=== PATIENT | female | born 1950 | race Caucasian/White ===

== ENCOUNTER 2017-10-23 19:14 | Inpatient (IN) | payer MEDICARE, MEDICAID, SELFPAY ==
[2017-10-23 19:28] VITALS: BP 145/68; PULSE 68; RESP 16; TEMP 36.2; O2SAT 95; BMI 25.0
--- NOTE | 2017-10-23 20:12 | NURSING ---
Pt arrive via cot from [facility] @ [phone]
--- NOTE | 2017-10-23 21:12 | PCM.HP.STD ---
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 The patient is a 67 year old Female with below past medical history significant for hypertension, hyperlipidemia, coronary artery disease, stroke, TIA, CADASIL syndrome, GERD, and depression who was transferred to [facility] MICU 10/12/2017 due to septic shock, and concern for ARDS after initially presenting to [facility] after a fall and was found to have right hip intertrochanteric hip fracture and underwent ORIF on 10/11/[address] Walsh with immediate post operative course was complicated by coffee ground emesis and aspiration causing hypoxic respiratory failure with septic versus hypovolemic shock. [] 10/14/2017 Aspiration pneumonia treated with Zosyn, Vancomycin, extubated. Upper GI bleed, EGD showed hiatal hernia, 2 esophageal ulcers, no active bleeding, transfused 2 unis PRBC, PPI BID x 1 month. NSTEMI demand ischemia, LHC not pursued, recommend aspirin 81MG, Atorvastatin 40MG. Plavix for CADASIL. Right hip fracture, needs PT/OT. Oxybutynin, hoang catheter discontinued for urinary retention. Right sided weakness from stroke, CADASIL. Lovenox 40MG SC daily for DVT prophylaxis. 10/23/2017 Admit to TCU for rehabilitaton, strengthening, prior to discharge home alone. 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) Stroke (Chronic) Depression (Chronic) Coronary artery disease (Chronic) GERD (gastroesophageal reflux disease) (Chronic) DVT (deep venous thrombosis) (Chronic) Allergies alteplase Allergy (Verified 10/23/17 20:04) Unknown Home Medications: Ambulatory Orders Medication Instructions Recorded Atenolol [Tenormin (Beta Rupesh)] 50 mg PO DAILY 08/14/15 Clopidogrel Bisulfate [Plavix] 75 mg PO DAILY 08/14/15 Lisinopril [Zestril] 10 mg PO DAILY 08/14/15 Acetaminophen [Tylenol] 325 - 975 mg PO Q8H PRN PRN 10/23/17 Aspirin 81 mg PO DAILY@0800 10/23/17 Atorvastatin Calcium [Lipitor] 40 mg PO QHS 10/23/17 Docusate Sodium [Colace] 100 mg PO BID 10/23/17 Duloxetine HCl 60 mg PO DAILY 10/23/17 Enoxaparin [Lovenox] 40 mg SQ DAILY 10/23/17 Gabapentin [Neurontin] 300 mg PO BIDCM 10/23/17 Melatonin 3 mg PO QHS 10/23/17 Nitroglycerin 0.4 mg SL PRN PRN 10/23/17 Pantoprazole Sodium [Protonix] 40 mg PO BID 10/23/17 Polyethylene Glycol 3350 [Miralax] 17 gm PO BID 10/23/17 Sennosides [Senna] 8.6 mg PO BID PRN 10/23/17 Surgical History: - - ORIF right hip. 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 Lives: Alone Smoking Status: Former smoker Tobacco Use: Non-smoker Alcohol: None Drugs: None - *Family History Maternal History Items: No pertinent history Paternal History Items: No pertinent history Review of Systems Constitutional: Denies: Chills, Fever, Weight Change HEENT: Denies: Head Aches, Sinus Congestion, Sinus Drainage Cardiovascular: Denies: Chest Pain, Palpitations Respiratory: Denies: Cough, Shortness of breath at rest, Sputum production Gastrointestinal: Denies: Abdominal Pain, Nausea, Vomiting Genitourinary: Denies: Dysuria Musculoskeletal: Denies: Joint Pain, Joint Tenderness Skin: Denies: Rash, Wounds Neurological: Denies: Numbness, Tingling, Focal weakness Psychiatric: Denies: Anxiety, Depression, Homicidal Ideations, Suicidal Ideations Hematologic/ Lymphatic: Denies: Easy Bruising, Easy Bleeding VTE Information - Inpt Only VTE Present on Admission: No VTE Mechan Device Prophylaxis: Knee High CHINO Hose VTE Pharm Prophylaxis ordered?: Yes Patient Problems: Active and Suspected Problems Acute respiratory failure with hypoxia (Acute) Aspiration pneumonia (Acute) Upper GI bleed (Acute) Anemia (Acute) Delirium (Acute) NSTEMI (non-ST elevated myocardial infarction) (Acute) Closed right hip fracture (Acute) Urinary retention (Acute) Hyperlipidemia (Acute) - Physical Exam General: Alert, Oriented x3, Cooperative HEENT: Atraumatic, PERRLA, EOMI, Normocephalic Neck: Supple, No JVD, Negative Carotid Bruits Lungs: Clear to auscultation, Normal air movement Cardiovascular: Regular rate, No murmurs Abdomen: Bowel Sounds Present, Soft, Non Tender Extremities: No edema, Capillary Refill Less than 3 Seconds Skin: No rashes, No breakdown Musculoskeletal: No Tenderness to Palpation of Joints or Extremities Neurological: Cranial nerves II-XII grossly intact Psych/Mental Status: Normal Affect, Appropriate Vital Signs Temp Pulse Resp BP Pulse Ox 97.2 F L 68 16 145/68 H 95 10/23/17 19:28 10/23/17 19:28 10/23/17 19:28 10/23/17 19:28 10/23/17 19:28 Oxygen Delivery Method Room Air Weight: 68.124 kg Body Mass Index (BMI) 25.0 Assessment/Plan Active and Suspected Problems Acute respiratory failure with hypoxia (Acute) Aspiration pneumonia (Acute) Upper GI bleed (Acute) Anemia (Acute) Delirium (Acute) NSTEMI (non-ST elevated myocardial infarction) (Acute) Closed right hip fracture (Acute) Urinary retention (Acute) Hyperlipidemia (Acute) 67 year old female with below past medical history hospitalized for right hip fracture, underwent ORIF 10/11/2017, complicated by upper GI bleed, coffee ground emesis, leading to aspiration pneumonia, acute respiratory failure, admitted to TCU for debility, here for rehabilitation, strengthening, prior to discharge home alone. Debility - PT/OT. Pain - Tylenol 1000MG Q8H PRN mild pain. Bowel - Miralax 17GM BID, Senna/colace 2 tablets BID, Dulcolax 10MG CO daily PRN. Pneumonia vaccination - Administer Prevnar 13 and/or Pneumovax 23 as necessary. DVT prophylaxis - Lovenox 40MG sc daily. Coronary Artery Disease - Atenolol 50MG daily, Lisinopril 10MG daily, Aspirin 81MG daily, NTG 0.4MG Q5M PRN chest pain. Hyperlipidemia - Atorvastatin 40MG QHS. Stroke/CADASIL - Plavix 75MG daily, Aspirin 81MG daily. Depression - Duloxetine 60MG daily. Skin irritation - Eucerin BID bilateral feet, legs; Calmoseptine BID coccyx. Neuropathic pain - Gabapentin 300MG BID. Nutrition - Glucerna 120ML TID. Insomnia - Melatonin 3MG QHS. Tinea Corporis - Nystatin powder BID groin, abdominal folds. Esophageal ulcers - Pantoprazole 40MG BID thru 11/14/2017, then 40MG daily.
--- NOTE | 2017-10-23 21:23 | HP.PCM_ITS ---
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 The patient is a 67 year old Female with below past medical history significant for hypertension, hyperlipidemia, coronary artery disease, stroke, TIA, CADASIL syndrome, GERD, and depression who was transferred to [facility] MICU 10/12/2017 due to septic shock, and concern for ARDS after initially presenting to [facility] after a fall and was found to have right hip intertrochanteric hip fracture and underwent ORIF on 10/11/[address] Walsh with immediate post operative course was complicated by coffee ground emesis and aspiration causing hypoxic respiratory failure with septic versus hypovolemic shock. [] 10/14/2017 Aspiration pneumonia treated with Zosyn, Vancomycin, extubated. Upper GI bleed, EGD showed hiatal hernia, 2 esophageal ulcers, no active bleeding, transfused 2 unis PRBC, PPI BID x 1 month. NSTEMI demand ischemia, LHC not pursued, recommend aspirin 81MG, Atorvastatin 40MG. Plavix for CADASIL. Right hip fracture, needs PT/OT. Oxybutynin, hoang catheter discontinued for urinary retention. Right sided weakness from stroke, CADASIL. Lovenox 40MG SC daily for DVT prophylaxis. 10/23/2017 Admit to TCU for rehabilitaton, strengthening, prior to discharge home alone. 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) Stroke (Chronic) Depression (Chronic) Coronary artery disease (Chronic) GERD (gastroesophageal reflux disease) (Chronic) DVT (deep venous thrombosis) (Chronic) Allergies alteplase Allergy (Verified 10/23/17 20:04) Unknown Home Medications: Ambulatory Orders Medication Instructions Recorded Atenolol [Tenormin (Beta Rupesh)] 50 mg PO DAILY 08/14/15 Clopidogrel Bisulfate [Plavix] 75 mg PO DAILY 08/14/15 Lisinopril [Zestril] 10 mg PO DAILY 08/14/15 Acetaminophen [Tylenol] 325 - 975 mg PO Q8H PRN PRN 10/23/17 Aspirin 81 mg PO DAILY@0800 10/23/17 Atorvastatin Calcium [Lipitor] 40 mg PO QHS 10/23/17 Docusate Sodium [Colace] 100 mg PO BID 10/23/17 Duloxetine HCl 60 mg PO DAILY 10/23/17 Enoxaparin [Lovenox] 40 mg SQ DAILY 10/23/17 Gabapentin [Neurontin] 300 mg PO BIDCM 10/23/17 Melatonin 3 mg PO QHS 10/23/17 Nitroglycerin 0.4 mg SL PRN PRN 10/23/17 Pantoprazole Sodium [Protonix] 40 mg PO BID 10/23/17 Polyethylene Glycol 3350 [Miralax] 17 gm PO BID 10/23/17 Sennosides [Senna] 8.6 mg PO BID PRN 10/23/17 Surgical History: - - ORIF right hip. 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 Lives: Alone Smoking Status: Former smoker Tobacco Use: Non-smoker Alcohol: None Drugs: None - *Family History Maternal History Items: No pertinent history Paternal History Items: No pertinent history Review of Systems Constitutional: Denies: Chills, Fever, Weight Change HEENT: Denies: Head Aches, Sinus Congestion, Sinus Drainage Cardiovascular: Denies: Chest Pain, Palpitations Respiratory: Denies: Cough, Shortness of breath at rest, Sputum production Gastrointestinal: Denies: Abdominal Pain, Nausea, Vomiting Genitourinary: Denies: Dysuria Musculoskeletal: Denies: Joint Pain, Joint Tenderness Skin: Denies: Rash, Wounds Neurological: Denies: Numbness, Tingling, Focal weakness Psychiatric: Denies: Anxiety, Depression, Homicidal Ideations, Suicidal Ideations Hematologic/ Lymphatic: Denies: Easy Bruising, Easy Bleeding VTE Information - Inpt Only VTE Present on Admission: No VTE Mechan Device Prophylaxis: Knee High CHINO Hose VTE Pharm Prophylaxis ordered?: Yes Patient Problems: Active and Suspected Problems Acute respiratory failure with hypoxia (Acute) Aspiration pneumonia (Acute) Upper GI bleed (Acute) Anemia (Acute) Delirium (Acute) NSTEMI (non-ST elevated myocardial infarction) (Acute) Closed right hip fracture (Acute) Urinary retention (Acute) Hyperlipidemia (Acute) - Physical Exam General: Alert, Oriented x3, Cooperative HEENT: Atraumatic, PERRLA, EOMI, Normocephalic Neck: Supple, No JVD, Negative Carotid Bruits Lungs: Clear to auscultation, Normal air movement Cardiovascular: Regular rate, No murmurs Abdomen: Bowel Sounds Present, Soft, Non Tender Extremities: No edema, Capillary Refill Less than 3 Seconds Skin: No rashes, No breakdown Musculoskeletal: No Tenderness to Palpation of Joints or Extremities Neurological: Cranial nerves II-XII grossly intact Psych/Mental Status: Normal Affect, Appropriate Vital Signs Temp Pulse Resp BP Pulse Ox 97.2 F L 68 16 145/68 H 95 10/23/17 19:28 10/23/17 19:28 10/23/17 19:28 10/23/17 19:28 10/23/17 19:28 Oxygen Delivery Method Room Air Weight: 68.124 kg Body Mass Index (BMI) 25.0 Assessment/Plan Active and Suspected Problems Acute respiratory failure with hypoxia (Acute) Aspiration pneumonia (Acute) Upper GI bleed (Acute) Anemia (Acute) Delirium (Acute) NSTEMI (non-ST elevated myocardial infarction) (Acute) Closed right hip fracture (Acute) Urinary retention (Acute) Hyperlipidemia (Acute) 67 year old female with below past medical history hospitalized for right hip fracture, underwent ORIF 10/11/2017, complicated by upper GI bleed, coffee ground emesis, leading to aspiration pneumonia, acute respiratory failure, admitted to TCU for debility, here for rehabilitation, strengthening, prior to discharge home alone. * Debility - PT/OT. * Pain - Tylenol 1000MG Q8H PRN mild pain. * Bowel - Miralax 17GM BID, Senna/colace 2 tablets BID, Dulcolax 10MG SD daily PRN. * Pneumonia vaccination - Administer Prevnar 13 and/or Pneumovax 23 as necessary. * DVT prophylaxis - Lovenox 40MG sc daily. * Coronary Artery Disease - Atenolol 50MG daily, Lisinopril 10MG daily, Aspirin 81MG daily, NTG 0.4MG Q5M PRN chest pain. * Hyperlipidemia - Atorvastatin 40MG QHS. * Stroke/CADASIL - Plavix 75MG daily, Aspirin 81MG daily. * Depression - Duloxetine 60MG daily. * Skin irritation - Eucerin BID bilateral feet, legs; Calmoseptine BID coccyx. * Neuropathic pain - Gabapentin 300MG BID. * Nutrition - Glucerna 120ML TID. * Insomnia - Melatonin 3MG QHS. * Tinea Corporis - Nystatin powder BID groin, abdominal folds. * Esophageal ulcers - Pantoprazole 40MG BID thru 11/14/2017, then 40MG daily.
[2017-10-23] MEDS: Atorvastatin Calcium 40 MG Tablet PO (21:32)
[2017-10-23] MEDS: MELATONIN 3 MG TABLET PO (21:32)
[2017-10-23] MEDS: Menthol/Lanolin/Calamine/Znox 113 GM Tube 1 APPLIC TOPICAL (23:16)
[2017-10-23] MEDS: Nystatin Powder 15gm Bottle 1 APPLIC TOPICAL (23:16)
[2017-10-24] MEDS: Senna/Docusate Sodium 1 Tablet 2 TABLET PO (04:15)
[2017-10-24] MEDS: Atenolol 50 MG Tablet PO (04:15)
[2017-10-24] MEDS: Lisinopril 10 MG Tablet PO (04:15)
[2017-10-24] MEDS: Pantoprazole Sodium 40 MG Tablet PO (04:15)
[2017-10-24] MEDS: DULoxetine Hcl 60 MG Capsule PO (04:15)
[2017-10-24] MEDS: Clopidogrel Bisulfate 75 MG Tablet PO (04:15)
[2017-10-24] MEDS: Menthol/Lanolin/Calamine/Znox 113 GM Tube 1 APPLIC TOPICAL (04:16)
[2017-10-24] MEDS: Nystatin Powder 15gm Bottle 1 APPLIC TOPICAL (04:16)
[2017-10-24] MEDS: Enoxaparin 40 MG/0.4 ML Syringe SC (04:17)
[2017-10-24] MEDS: Acetaminophen 500 MG Tablet 1000 MG PO ×2 (04:17→15:07)
[2017-10-24 05:58] LABS: Absolute Neutrophil Count 6.2 X10^3/uL (2.0-7.7); Basophil# 0.05 X10^3/uL; Basophil% 0.5 % (0-1); Eosinophil# 0.33 X10^3/uL; Eosinophils% 3.4 % (0-5); Hematocrit 32.8 % (37-47); Hemoglobin 10.4 g/dl (12.0-15.0); Lymphocyte % 21.6 % (19-41); Mean Corp Hgb Conc 31.7 g/gl (32-36); Mean Corpuscular Hgb 29.4 pg (27.0-32.0); Mean Corpuscular Volume 92.7 fL (81-99); Mean Platelet Vol. 9.8 fl (6.2-12.0); Monocyte# 0.99 X10^3/uL; Monocyte% 10.2 % (0-10); Neutrophil # 6.21 X10^3/uL (2.7-7.7); Platelet Count 680 K/mm3 (150-450); RBC Distribution Width CV 15.2 % (11.6-14.6); RBC Distribution Width SD 49.4 fl (35.1-43.9); Red Blood Count 3.54 M/mm3 (4.2-5.4); White Blood Count 9.7 K/mm3 (4.4-11.0)
[2017-10-24 06:04] LABS: POSITIVE COUNT NO; POSITIVE DIFFERENTIAL NO; POSITIVE MORPHOLOGY NO
[2017-10-24 06:06] LABS: Bedside Glucose 112 mg/dL (70-110)
[2017-10-24 06:25] LABS: Anion Gap 9 (5-15); BUN 10 mg/dL (7-18); BUN/Creat Ratio 18.5 RATIO (10-20); Calcium,Total 8.4 mg/dL (8.5-10.1); Chloride 106 mmol/L (98-107); Creatinine, Serum 0.54 mg/dL (0.55-1.02); EST Glomerular Filtration Rate 119 mL/min (>60); Est Glom Filt Rate - Afr Amer 145 mL/min (>60); Estimated Creatinine Clearance 49.12 ml/min; Glucose 98 mg/dL (74-106); Potassium 3.5 mmol/L (3.5-5.1); Sodium Level 141 mmol/L (136-145)
[2017-10-24] MEDS: Aspirin 81 MG TAB.CHEW PO (07:20)
[2017-10-24] MEDS: Gabapentin 300 MG Capsule PO (07:20)
[2017-10-24 10:45] LABS: Hemoglobin A1c 5.8 % (4.2-6.3)
--- NOTE | 2017-10-24 10:56 | PCM.PN.RX ---
<OmarlobomaríaBc D - Last Filed: 10/24/17 10:56> Progress Note - Pharmacy Subjective: TCU Admission Objective: Allergies alteplase Allergy (Verified 10/23/17 20:04) Unknown Home Medications Medication Instructions Recorded Atenolol [Tenormin (Beta Rupesh)] 50 mg PO DAILY 08/14/15 Clopidogrel Bisulfate [Plavix] 75 mg PO DAILY 08/14/15 Lisinopril [Zestril] 10 mg PO DAILY 08/14/15 Acetaminophen [Tylenol] 325 - 975 mg PO Q8H PRN PRN 10/23/17 Aspirin 81 mg PO DAILY@0800 10/23/17 Atorvastatin Calcium [Lipitor] 40 mg PO QHS 10/23/17 Docusate Sodium [Colace] 100 mg PO BID 10/23/17 Duloxetine HCl 60 mg PO DAILY 10/23/17 Enoxaparin [Lovenox] 40 mg SQ DAILY 10/23/17 Gabapentin [Neurontin] 300 mg PO BIDCM 10/23/17 Melatonin 3 mg PO QHS 10/23/17 Nitroglycerin 0.4 mg SL PRN PRN 10/23/17 Pantoprazole Sodium [Protonix] 40 mg PO BID 10/23/17 Polyethylene Glycol 3350 [Miralax] 17 gm PO BID 10/23/17 Sennosides [Senna] 8.6 mg PO BID PRN 10/23/17 Current Medications Generic Name Dose Route Start Last Admin Trade Name Freq PRN Reason Stop Dose Admin Acetaminophen 1,000 mg 10/23/17 21:34 10/24/17 04:17 Tylenol PO 1,000 mg Q8H PRN PRN Administration MILD PAIN (1-3/10) Aspirin 81 mg 10/24/17 08:00 10/24/17 07:20 Aspirin, Baby PO 81 mg DAILY@0800 [facility] Administration Atenolol 50 mg 10/24/17 06:00 10/24/17 04:15 Tenormin (Beta Rupesh) PO 50 mg DAILY [facility] Administration Atorvastatin Calcium 40 mg 10/23/17 22:00 10/23/17 21:32 Lipitor PO 40 mg QHS [facility] Administration Bisacodyl 10 mg 10/23/17 21:34 Dulcolax RECTAL DAILY PRN Constipation Calamine/Phenol 1 applic 10/23/17 22:00 10/24/17 04:16 Calmoseptine Ointment TOPICAL 1 applicatio [phone] [facility] Administration Protocol Clopidogrel Bisulfate 75 mg 10/24/17 06:00 10/24/17 04:15 Plavix PO 75 mg DAILY [facility] Administration Duloxetine HCl 60 mg 10/24/17 06:00 10/24/17 04:15 Cymbalta PO 60 mg DAILY [facility] Administration Emollient Ointment 1 applic 10/23/17 22:00 10/24/17 04:15 Eucerin Intensive Repair TOPICAL 1 applicatio [phone] [facility] Administration Protocol Enoxaparin Sodium 40 mg 10/24/17 06:00 10/24/17 04:17 Lovenox SC 40 mg DAILY [facility] Administration Gabapentin 300 mg 10/24/17 08:00 10/24/17 07:20 Neurontin PO 300 mg BIDCM [facility] Administration Lisinopril 10 mg 10/24/17 06:00 10/24/17 04:15 Zestril PO 10 mg DAILY [facility] Administration Melatonin 3 mg 10/23/17 22:00 10/23/17 21:32 Melatonin PO 3 mg QHS [facility] Administration Nitroglycerin 0.4 mg 10/23/17 19:40 Nitrostat SUBLINGUAL Q5M PRN Chest pain Nutritional Formula (Lactose Free) 120 ml 10/24/17 07:45 10/24/17 07:19 Glucerna Shake PO Not Given TIDCM [facility] Nystatin 1 applic 10/23/17 22:00 10/24/17 04:16 Mycostatin Powder TOPICAL 1 applicatio [phone] [facility] Administration Protocol Pantoprazole Sodium 40 mg 10/24/17 06:00 10/24/17 04:15 Protonix PO 11/14/17 18:01 40 mg BID [facility] Administration Pantoprazole Sodium 40 mg 11/15/17 06:00 Protonix PO DAILY [facility] Polyethylene Glycol 17 gm 10/24/17 06:00 10/24/17 04:16 Miralax PO Not Given BID [facility] Polysaccharide Iron Complex 150 mg 10/25/17 08:00 [facility] Senna/Docusate Sodium 2 tablet 10/24/17 06:00 10/24/17 04:15 Senokot-S, Malika-Colace PO 2 tablet BID [facility] Administration Tuberculin PPD 5 tu 10/31/17 10:00 Tubersol, Aplisol, Ppd ID 10/31/17 10:01 X1 ONE Problem List Acute respiratory failure with hypoxia (Acute) Aspiration pneumonia (Acute) Upper GI bleed (Acute) Anemia (Acute) Delirium (Acute) NSTEMI (non-ST elevated myocardial infarction) (Acute) Closed right hip fracture (Acute) Urinary retention (Acute) Hypertension (Chronic) 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) Stroke (Chronic) Depression (Chronic) Hyperlipidemia (Acute) Coronary artery disease (Chronic) GERD (gastroesophageal reflux disease) (Chronic) DVT (deep venous thrombosis) (Chronic) Vital Signs Temp Pulse Resp BP Pulse Ox 97.2 F L 68 16 145/68 H 95 10/23/17 19:28 10/23/17 19:28 10/23/17 19:28 10/23/17 19:28 10/23/17 19:28 Oxygen Delivery Method Room Air Weight: 68.124 kg Body Mass Index (BMI) 25.0 Sodium 141 mmol/L (136-145) 10/24/17 05:15 Potassium 3.5 mmol/L (3.5-5.1) 10/24/17 05:15 Chloride 106 mmol/L (98-107) 10/24/17 05:15 Carbon Dioxide 26.0 mmol/L (21.0-32.0) 10/24/17 05:15 Anion Gap 9 (5-15) 10/24/17 05:15 BUN 10 mg/dL (7-18) 10/24/17 05:15 Creatinine 0.54 mg/dL (0.55-1.02) L 10/24/17 05:15 Est GFR (MDRD) Af Amer 145 mL/min (>60) 10/24/17 05:15 Est GFR (MDRD) Non-Af 119 mL/min (>60) 10/24/17 05:15 BUN/Creatinine Ratio 18.5 RATIO (10-20) 10/24/17 05:15 Glucose 98 mg/dL (74-106) 10/24/17 05:15 Assessment/Plan: 1) Pain APAP for mild pain, gabapentin. Continue to monitor prn medication use, daily pain scores. 2) CAD/Stroke ASA, atenolol, atorvastatin, clopidogrel, lisinopril, ntg prn. BP/HR within goal ranges, K wnl, BUN/SCr at baseline, no lipids in EMR, hepatic enzymes last checked 2013. Continue to monitor BP/HR, renal function, electrolytes, prn medication use, lipids/enzymes. 3) GI Pantoprazole taper to daily. Continue to monitor s/s GI distress. 4) DVT PPx Enoxaparin daily. Continue to monitor s/s bleeding. 5) Nutrition Glucerna, Fe. Continue to monitor clinically. 6) Derm Calmoseptine, nystatin, emollient. Continue to monitor clinically. 7) Sleep Melatonin at HS. Continue to monitor for insomnia. Psychotropic Medications: 8) Depression Duloxetine daily. Continue to monitor s/s depression. Unnecessary Medications: None Bowel Regimen: 9) Senna/s, PEG, prn bisacodyl. Continue to monitor prn medication use, for constipation/diarrhea. Date of Note:: 10/24/17 - Provider Comments Provider responsibility: Provider responsible to enter orders to implement recommendations <Lars Castro Chi - Last Filed: 10/24/17 17:48> Progress Note - Pharmacy Subjective: [] Objective: Allergies alteplase Allergy (Verified 10/23/17 20:04) Unknown Home Medications Medication Instructions Recorded Atenolol [Tenormin (beta rupesh)] 50 mg PO DAILY 08/14/15 Clopidogrel Bisulfate [Plavix] 75 mg PO DAILY 08/14/15 Lisinopril [Zestril] 10 mg PO DAILY 08/14/15 Aspirin 81 mg PO DAILY@0800 10/23/17 Atorvastatin Calcium [Lipitor] 40 mg PO QHS 10/23/17 Duloxetine HCl 60 mg PO DAILY 10/23/17 Gabapentin [Neurontin] 300 mg PO BIDCM 10/23/17 Melatonin 3 mg PO QHS 10/23/17 Nitroglycerin 0.4 mg SL PRN PRN 10/23/17 Acetaminophen [Tylenol] 1,000 mg PO Q8H PRN PRN tablet 10/24/17 Iron Polysaccharide Complex 150 mg PO DAILYCM #30 cap 10/24/17 [Ferrex 150] Menthol/Lanolin/Calamine/Znox 1 applic TOPICAL 0600,2200 tube 10/24/17 [Calmoseptine Ointment] Nystatin Powder [Mycostatin Powder] 1 applic TOPICAL 0600,2200 bottle 10/24/17 Pantoprazole Sodium [Protonix] 40 mg PO BID #60 tab 10/24/17 Vital Signs Temp Pulse Resp BP Pulse Ox 97.2 F L 69 18 137/64 H 98 10/24/17 15:25 10/24/17 15:25 10/24/17 15:25 10/24/17 15:25 10/24/17 15:25 Oxygen Delivery Method Room Air Weight: 68.124 kg Body Mass Index (BMI) 25.0 Sodium 141 mmol/L (136-145) 10/24/17 05:15 Potassium 3.5 mmol/L (3.5-5.1) 10/24/17 05:15 Chloride 106 mmol/L (98-107) 10/24/17 05:15 Carbon Dioxide 26.0 mmol/L (21.0-32.0) 10/24/17 05:15 Anion Gap 9 (5-15) 10/24/17 05:15 BUN 10 mg/dL (7-18) 10/24/17 05:15 Creatinine 0.54 mg/dL (0.55-1.02) L 10/24/17 05:15 Est GFR (MDRD) Af Amer 145 mL/min (>60) 10/24/17 05:15 Est GFR (MDRD) Non-Af 119 mL/min (>60) 10/24/17 05:15 BUN/Creatinine Ratio 18.5 RATIO (10-20) 10/24/17 05:15 Glucose 98 mg/dL (74-106) 10/24/17 05:15 Assessment/Plan: Psychotropic Medications: Unnecessary Medications: Bowel Regimen: - Provider Comments Provider responsibility: Provider responsible to enter orders to implement recommendations Provider Comments to Recommendations by Pharmacy: Agree
--- NOTE | 2017-10-24 11:04 | PHA.CONS_ITS ---
<OmarlobomaríaBc D - Last Filed: 10/24/17 10:56> Progress Note - Pharmacy Subjective: TCU Admission Objective: Allergies alteplase Allergy (Verified 10/23/17 20:04) Unknown Home Medications Medication Instructions Recorded Atenolol [Tenormin (Beta Rupesh)] 50 mg PO DAILY 08/14/15 Clopidogrel Bisulfate [Plavix] 75 mg PO DAILY 08/14/15 Lisinopril [Zestril] 10 mg PO DAILY 08/14/15 Acetaminophen [Tylenol] 325 - 975 mg PO Q8H PRN PRN 10/23/17 Aspirin 81 mg PO DAILY@0800 10/23/17 Atorvastatin Calcium [Lipitor] 40 mg PO QHS 10/23/17 Docusate Sodium [Colace] 100 mg PO BID 10/23/17 Duloxetine HCl 60 mg PO DAILY 10/23/17 Enoxaparin [Lovenox] 40 mg SQ DAILY 10/23/17 Gabapentin [Neurontin] 300 mg PO BIDCM 10/23/17 Melatonin 3 mg PO QHS 10/23/17 Nitroglycerin 0.4 mg SL PRN PRN 10/23/17 Pantoprazole Sodium [Protonix] 40 mg PO BID 10/23/17 Polyethylene Glycol 3350 [Miralax] 17 gm PO BID 10/23/17 Sennosides [Senna] 8.6 mg PO BID PRN 10/23/17 Current Medications Generic Name Dose Route Start Last Admin Trade Name Freq PRN Reason Stop Dose Admin Acetaminophen 1,000 mg 10/23/17 21:34 10/24/17 04:17 Tylenol PO 1,000 mg Q8H PRN PRN Administration MILD PAIN (1-3/10) Aspirin 81 mg 10/24/17 08:00 10/24/17 07:20 Aspirin, Baby PO 81 mg DAILY@0800 [facility] Administration Atenolol 50 mg 10/24/17 06:00 10/24/17 04:15 Tenormin (Beta Rupesh) PO 50 mg DAILY [facility] Administration Atorvastatin Calcium 40 mg 10/23/17 22:00 10/23/17 21:32 Lipitor PO 40 mg QHS [facility] Administration Bisacodyl 10 mg 10/23/17 21:34 Dulcolax RECTAL DAILY PRN Constipation Calamine/Phenol 1 applic 10/23/17 22:00 10/24/17 04:16 Calmoseptine Ointment TOPICAL 1 applicatio [phone] [facility] Administration Protocol Clopidogrel Bisulfate 75 mg 10/24/17 06:00 10/24/17 04:15 Plavix PO 75 mg DAILY [facility] Administration Duloxetine HCl 60 mg 10/24/17 06:00 10/24/17 04:15 Cymbalta PO 60 mg DAILY [facility] Administration Emollient Ointment 1 applic 10/23/17 22:00 10/24/17 04:15 Eucerin Intensive Repair TOPICAL 1 applicatio [phone] [facility] Administration Protocol Enoxaparin Sodium 40 mg 10/24/17 06:00 10/24/17 04:17 Lovenox SC 40 mg DAILY [facility] Administration Gabapentin 300 mg 10/24/17 08:00 10/24/17 07:20 Neurontin PO 300 mg BIDCM [facility] Administration Lisinopril 10 mg 10/24/17 06:00 10/24/17 04:15 Zestril PO 10 mg DAILY [facility] Administration Melatonin 3 mg 10/23/17 22:00 10/23/17 21:32 Melatonin PO 3 mg QHS [facility] Administration Nitroglycerin 0.4 mg 10/23/17 19:40 Nitrostat SUBLINGUAL Q5M PRN Chest pain Nutritional Formula (Lactose Free) 120 ml 10/24/17 07:45 10/24/17 07:19 Glucerna Shake PO Not Given TIDCM [facility] Nystatin 1 applic 10/23/17 22:00 10/24/17 04:16 Mycostatin Powder TOPICAL 1 applicatio [phone] [facility] Administration Protocol Pantoprazole Sodium 40 mg 10/24/17 06:00 10/24/17 04:15 Protonix PO 11/14/17 18:01 40 mg BID [facility] Administration Pantoprazole Sodium 40 mg 11/15/17 06:00 Protonix PO DAILY [facility] Polyethylene Glycol 17 gm 10/24/17 06:00 10/24/17 04:16 Miralax PO Not Given BID [facility] Polysaccharide Iron Complex 150 mg 10/25/17 08:00 [facility] Senna/Docusate Sodium 2 tablet 10/24/17 06:00 10/24/17 04:15 Senokot-S, Malika-Colace PO 2 tablet BID [facility] Administration Tuberculin PPD 5 tu 10/31/17 10:00 Tubersol, Aplisol, Ppd ID 10/31/17 10:01 X1 ONE Problem List Acute respiratory failure with hypoxia (Acute) Aspiration pneumonia (Acute) Upper GI bleed (Acute) Anemia (Acute) Delirium (Acute) NSTEMI (non-ST elevated myocardial infarction) (Acute) Closed right hip fracture (Acute) Urinary retention (Acute) Hypertension (Chronic) 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) Stroke (Chronic) Depression (Chronic) Hyperlipidemia (Acute) Coronary artery disease (Chronic) GERD (gastroesophageal reflux disease) (Chronic) DVT (deep venous thrombosis) (Chronic) Vital Signs Temp Pulse Resp BP Pulse Ox 97.2 F L 68 16 145/68 H 95 10/23/17 19:28 10/23/17 19:28 10/23/17 19:28 10/23/17 19:28 10/23/17 19:28 Oxygen Delivery Method Room Air Weight: 68.124 kg Body Mass Index (BMI) 25.0 Sodium 141 mmol/L (136-145) 10/24/17 05:15 Potassium 3.5 mmol/L (3.5-5.1) 10/24/17 05:15 Chloride 106 mmol/L (98-107) 10/24/17 05:15 Carbon Dioxide 26.0 mmol/L (21.0-32.0) 10/24/17 05:15 Anion Gap 9 (5-15) 10/24/17 05:15 BUN 10 mg/dL (7-18) 10/24/17 05:15 Creatinine 0.54 mg/dL (0.55-1.02) L 10/24/17 05:15 Est GFR (MDRD) Af Amer 145 mL/min (>60) 10/24/17 05:15 Est GFR (MDRD) Non-Af 119 mL/min (>60) 10/24/17 05:15 BUN/Creatinine Ratio 18.5 RATIO (10-20) 10/24/17 05:15 Glucose 98 mg/dL (74-106) 10/24/17 05:15 Assessment/Plan: 1) Pain APAP for mild pain, gabapentin. Continue to monitor prn medication use, daily pain scores. 2) CAD/Stroke ASA, atenolol, atorvastatin, clopidogrel, lisinopril, ntg prn. BP/HR within goal ranges, K wnl, BUN/SCr at baseline, no lipids in EMR, hepatic enzymes last checked 2013. Continue to monitor BP/HR, renal function, electrolytes, prn medication use, lipids/enzymes. 3) GI Pantoprazole taper to daily. Continue to monitor s/s GI distress. 4) DVT PPx Enoxaparin daily. Continue to monitor s/s bleeding. 5) Nutrition Glucerna, Fe. Continue to monitor clinically. 6) Derm Calmoseptine, nystatin, emollient. Continue to monitor clinically. 7) Sleep Melatonin at HS. Continue to monitor for insomnia. Psychotropic Medications: 8) Depression Duloxetine daily. Continue to monitor s/s depression. Unnecessary Medications: None Bowel Regimen: 9) Senna/s, PEG, prn bisacodyl. Continue to monitor prn medication use, for constipation/diarrhea. Date of Note:: 10/24/17 - Provider Comments Provider responsibility: Provider responsible to enter orders to implement recommendations <Lars Castro Chi - Last Filed: 10/24/17 17:48> Progress Note - Pharmacy Subjective: [] Objective: Allergies alteplase Allergy (Verified 10/23/17 20:04) Unknown Home Medications Medication Instructions Recorded Atenolol [Tenormin (beta rupesh)] 50 mg PO DAILY 08/14/15 Clopidogrel Bisulfate [Plavix] 75 mg PO DAILY 08/14/15 Lisinopril [Zestril] 10 mg PO DAILY 08/14/15 Aspirin 81 mg PO DAILY@0800 10/23/17 Atorvastatin Calcium [Lipitor] 40 mg PO QHS 10/23/17 Duloxetine HCl 60 mg PO DAILY 10/23/17 Gabapentin [Neurontin] 300 mg PO BIDCM 10/23/17 Melatonin 3 mg PO QHS 10/23/17 Nitroglycerin 0.4 mg SL PRN PRN 10/23/17 Acetaminophen [Tylenol] 1,000 mg PO Q8H PRN PRN tablet 10/24/17 Iron Polysaccharide Complex 150 mg PO DAILYCM #30 cap 10/24/17 [Ferrex 150] Menthol/Lanolin/Calamine/Znox 1 applic TOPICAL 0600,2200 tube 10/24/17 [Calmoseptine Ointment] Nystatin Powder [Mycostatin Powder] 1 applic TOPICAL 0600,2200 bottle 10/24/17 Pantoprazole Sodium [Protonix] 40 mg PO BID #60 tab 10/24/17 Vital Signs Temp Pulse Resp BP Pulse Ox 97.2 F L 69 18 137/64 H 98 10/24/17 15:25 10/24/17 15:25 10/24/17 15:25 10/24/17 15:25 10/24/17 15:25 Oxygen Delivery Method Room Air Weight: 68.124 kg Body Mass Index (BMI) 25.0 Sodium 141 mmol/L (136-145) 10/24/17 05:15 Potassium 3.5 mmol/L (3.5-5.1) 10/24/17 05:15 Chloride 106 mmol/L (98-107) 10/24/17 05:15 Carbon Dioxide 26.0 mmol/L (21.0-32.0) 10/24/17 05:15 Anion Gap 9 (5-15) 10/24/17 05:15 BUN 10 mg/dL (7-18) 10/24/17 05:15 Creatinine 0.54 mg/dL (0.55-1.02) L 10/24/17 05:15 Est GFR (MDRD) Af Amer 145 mL/min (>60) 10/24/17 05:15 Est GFR (MDRD) Non-Af 119 mL/min (>60) 10/24/17 05:15 BUN/Creatinine Ratio 18.5 RATIO (10-20) 10/24/17 05:15 Glucose 98 mg/dL (74-106) 10/24/17 05:15 Assessment/Plan: Psychotropic Medications: Unnecessary Medications: Bowel Regimen: - Provider Comments Provider responsibility: Provider responsible to enter orders to implement recommendations Provider Comments to Recommendations by Pharmacy: Agree
--- NOTE | 2017-10-24 12:44 | CASEMGMT ---
Social Work Spoke with resident and resident family in room. Resident requesting to discharge on this day, 10/24/17. This socia worker and resident daughter collaborating with resident on the importance of being able to return home safely and encouraging resident to stay another day to be able to facilitate a safe discharge home. Resident declining to stay another day, discharge date set for 10/24/17 per resident request. Resident is agreeable to physical and occupational therapy services as well as a home health aide to be set up within the home. Resident requesting for home health services to be set up through [facility]. Resident daughter planning to provide transportation home for resident later this afternoon. Team notified of resident choice. Support given. Telephone call to [facility], voicemail left for intake, waiting response. Proposed discharge date: 10/24/17 PLAN: Discharge home alone with home health services. Anisha CORRIGAN, TACK DRILLER
--- NOTE | 2017-10-24 12:53 | DCINST_ITS ---
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) Stroke (Chronic) Depression (Chronic) Hyperlipidemia (Acute) Coronary artery disease (Chronic) GERD (gastroesophageal reflux disease) (Chronic) DVT (deep venous thrombosis) (Chronic) You will use the following diet at home:: No restrictions, Regular Your food should be the consistency of: Regular Your liquids should be the consistency of: Regular/Thin Discharge Activity: Return to Normal Activity, May Shower, Use Walker Weight Bearing Status: Weight bearing as tolerated Call your doctor if you observe: Fever of 101 or Higher, Inability to urinate, Inability to have a bowel movement, Shortness of breath, Chest pain, Uncontrolled pain Allergies/Adverse Reactions: Allergies alteplase Allergy (Verified 10/23/17 20:04) Unknown Medications to take at Discharge Atenolol [Tenormin (beta farheen)] 50 mg PO DAILY 08/14/15 Clopidogrel Bisulfate [Plavix] 75 mg PO DAILY 08/14/15 Lisinopril [Zestril] 10 mg PO DAILY 08/14/15 Aspirin 81 mg PO DAILY@0800 10/23/17 Atorvastatin Calcium [Lipitor] 40 mg PO QHS 10/23/17 Duloxetine HCl 60 mg PO DAILY 10/23/17 Gabapentin [Neurontin] 300 mg PO BIDCM 10/23/17 Melatonin 3 mg PO QHS 10/23/17 Nitroglycerin 0.4 mg SL PRN PRN 10/23/17 Acetaminophen [Tylenol] 1,000 mg PO Q8H PRN PRN tablet 10/24/17 Iron Polysaccharide Complex [Ferrex 150] 150 mg PO DAILYCM #30 cap 10/24/17 Menthol/Lanolin/Calamine/Znox [Calmoseptine Ointment] 1 applic TOPICAL 0600, 2200 tube 10/24/17 Nystatin Powder [Mycostatin Powder] 1 applic TOPICAL 0600,2200 bottle 10/24/17 Pantoprazole Sodium [Protonix] 40 mg PO BID #60 tab 10/24/17 The following prescriptions were given: Iron Polysaccharide Complex [Ferrex 150] 150 mg PO DAILYCM #30 cap Pantoprazole Sodium [Protonix] 40 mg PO BID #60 tab Primary Care Physician: Jackson Iniguez MD [Primary Care Provider] - Please follow up with your Primary Care Physician in: 1 week. Please Follow Up With: Dr Carmelo Walsh When: Orthopedics Please Follow Up With: Dr Ham When: Cardiology Proposed Discharge Date: 10/24/17
--- NOTE | 2017-10-24 12:53 | PCM.DC.SUM ---
Discharge Date and Diagnosis - Problem List Patient Problems: Active and Suspected Problems Acute respiratory failure with hypoxia (Acute) Aspiration pneumonia (Acute) Upper GI bleed (Acute) Anemia (Acute) Delirium (Acute) NSTEMI (non-ST elevated myocardial infarction) (Acute) Closed right hip fracture (Acute) Urinary retention (Acute) Hyperlipidemia (Acute) Date of Admission: 10/23/17 Date of Discharge: 10/24/17 - Primary Discharge Diagnosis Active and Suspected Problems Acute respiratory failure with hypoxia (Acute) Aspiration pneumonia (Acute) Upper GI bleed (Acute) Anemia (Acute) Delirium (Acute) NSTEMI (non-ST elevated myocardial infarction) (Acute) Closed right hip fracture (Acute) Urinary retention (Acute) Hyperlipidemia (Acute) - Secondary Discharge Diagnosis Chronic Problems Hypertension (Chronic) 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) Stroke (Chronic) Depression (Chronic) Coronary artery disease (Chronic) GERD (gastroesophageal reflux disease) (Chronic) DVT (deep venous thrombosis) (Chronic) Hospital Course and Treatment Imaging Results: 10/23/17 19:58 Diet: Regular Diet Labs (Last 48 Hours) 10/24/17 10/24/17 10/24/17 05:15 05:15 05:15 WBC 9.7 RBC 3.54 L Hgb 10.4 L Hct 32.8 L MCV 92.7 MCH 29.4 MCHC 31.7 L RDW 15.2 H RDW Differential 49.4 H Plt Count 680 H MPV 9.8 Immature Gran % (Auto) 0.300 Neut % (Auto) 64.0 Lymph % (Auto) 21.6 [place] % (Auto) 10.2 H Eos % (Auto) 3.4 Baso % (Auto) 0.5 Absolute Neuts (auto) 6.2 Absolute Lymphs (auto) 2.10 Total Counted Not Reportable Sodium 141 Potassium 3.5 Chloride 106 Carbon Dioxide 26.0 Anion Gap 9 BUN 10 Creatinine 0.54 L Estim Creat Clear Calc 49.12 Est GFR (MDRD) Af Amer 145 Est GFR (MDRD) Non-Af 119 BUN/Creatinine Ratio 18.5 Glucose 98 Hemoglobin A1c 5.8 Calcium 8.4 L POC Glucose 10/24/17 05:56 WBC RBC Hgb Hct MCV MCH MCHC RDW RDW Differential Plt Count MPV Immature Gran % (Auto) Neut % (Auto) Lymph % (Auto) [place] % (Auto) Eos % (Auto) Baso % (Auto) Absolute Neuts (auto) Absolute Lymphs (auto) Total Counted Sodium Potassium Chloride Carbon Dioxide Anion Gap BUN Creatinine Estim Creat Clear Calc Est GFR (MDRD) Af Amer Est GFR (MDRD) Non-Af BUN/Creatinine Ratio Glucose Hemoglobin A1c Calcium POC Glucose 112 H Operations: None Procedures: None Summary of Care Provided: The patient is a 67 year old Female with below past medical history hospitalized for right hip fracture, underwent ORIF 10/11/2017, complicated by upper GI bleed, coffee ground emesis, leading to aspiration pneumonia, acute respiratory failure, admitted to TCU for debility, here for rehabilitation, strengthening, prior to discharge home alone. [] Discharge home with family, and Home health services. Home health ordered. Discharge Diet: No Restrictions Discharge Activity: Return to Normal Activity, May Shower, Use Walker Weight Bearing Status: Weight bearing as tolerated Call your doctor if you observe: Fever of 101 or Higher, Inability to urinate, Inability to have a bowel movement, Shortness of breath, Chest pain, Uncontrolled pain Home Medications: Medications to take at Discharge Atenolol [Tenormin (beta farheen)] 50 mg PO DAILY 08/14/15 Clopidogrel Bisulfate [Plavix] 75 mg PO DAILY 08/14/15 Lisinopril [Zestril] 10 mg PO DAILY 08/14/15 Aspirin 81 mg PO DAILY@0800 10/23/17 Atorvastatin Calcium [Lipitor] 40 mg PO QHS 10/23/17 Duloxetine HCl 60 mg PO DAILY 10/23/17 Gabapentin [Neurontin] 300 mg PO BIDCM 10/23/17 Melatonin 3 mg PO QHS 10/23/17 Nitroglycerin 0.4 mg SL PRN PRN 10/23/17 Acetaminophen [Tylenol] 1,000 mg PO Q8H PRN PRN tablet 10/24/17 Iron Polysaccharide Complex [Ferrex 150] 150 mg PO DAILYCM #30 cap 10/24/17 Menthol/Lanolin/Calamine/Znox [Calmoseptine Ointment] 1 applic TOPICAL 0600,2200 tube 10/24/17 Nystatin Powder [Mycostatin Powder] 1 applic TOPICAL 0600,2200 bottle 10/24/17 Pantoprazole Sodium [Protonix] 40 mg PO BID #60 tab 10/24/17 Following Prescrptions Were Given to Patient: Iron Polysaccharide Complex [Ferrex 150] 150 mg PO DAILYCM #30 cap Pantoprazole Sodium [Protonix] 40 mg PO BID #60 tab Primary Care Physician: Jackson Iniguez MD [Primary Care Provider] - Please follow up with your Primary Care Physician in: 1 week. Please Follow Up With: Dr Carmelo Walsh When: Orthopedics Please Follow Up With: Dr Ham When: Cardiology Disposition: Home with Home Health Minutes spent on discharge:: 35 Patient Condition:: Stable Medical Necessity - Tobacco Use Smoking Status: Former smoker Tobacco Use: Non-smoker Meaningful Use Info Meaningful Use Diagnoses (Choose all that apply): None applicable
--- NOTE | 2017-10-24 12:54 | HHNOTE_ITS ---
Home Health Note - Plan Overview of reason of hospitalization: The patient is a 67 year old Female with below past medical history hospitalized for right hip fracture, underwent ORIF 10/11/2017, complicated by upper GI bleed, coffee ground emesis, leading to aspiration pneumonia, acute respiratory failure, admitted to TCU for debility, here for rehabilitation, strengthening, prior to discharge home alone. [] Discharge home with family, and Home health services. Home health ordered. 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) Stroke (Chronic) Depression (Chronic) Hyperlipidemia (Acute) Coronary artery disease (Chronic) GERD (gastroesophageal reflux disease) (Chronic) DVT (deep venous thrombosis) (Chronic) Complete List of Medical Problems Acute respiratory failure with hypoxia (Acute) Aspiration pneumonia (Acute) Upper GI bleed (Acute) Anemia (Acute) Delirium (Acute) NSTEMI (non-ST elevated myocardial infarction) (Acute) Closed right hip fracture (Acute) Urinary retention (Acute) Hypertension (Chronic) 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) Stroke (Chronic) Depression (Chronic) Hyperlipidemia (Acute) Coronary artery disease (Chronic) GERD (gastroesophageal reflux disease) (Chronic) DVT (deep venous thrombosis) (Chronic) - Requirements and Reasons Disciplines Needed/Ordered: Physical Therapy Reason for Disciplines: Gait Training, Stair Training, Fall Prevention, Home Safety/Equipment Instruction, Balance and/or Posture Training, Transfer Training Related To: Limited/Poor Endurance, Shortness of Breath with Activity, Physical Impairments, Unsteady Gait/Balance, Fall Risk Patient is unable to leave the home: Without Aid of Supportive Devices (crutches , cane, wheelchair, walker), Without the assistance of another person - Additional Disciplines Additional Disciplines Needed/Ordered: Occupational Therapy, Home Health Aide
--- NOTE | 2017-10-24 14:27 | CASEMGMT ---
Brief interview for mental status (BIMS) and resident mood interview (PHQ-9) completed on this day. BIMS score13/15. PHQ-9 score 10/30
--- NOTE | 2017-10-24 15:09 | NURSING ---
Addendum entered by Carolina Gonzalez 10/24/17 15:10: No drainage noted after ashtyn removed. Original Note: [place] removed from rt hip incisions, 12 total, dsd applied.
[2017-10-24 15:25] VITALS: BP 137/64; PULSE 69; RESP 18; TEMP 36.2; O2SAT 98
--- NOTE | 2017-10-24 16:57 | CASEMGMT ---
Social Work Telephone call from [facility], [facility] is unable accept resident. [facility] call to [facility], [facility] able to review referral and get back to this social services director. Clinical information faxed. Pending approval. Proposed discharge date: 10/24/17 PLAN: Discharge home alone with home health services. Anisha CORRIGAN, HEAVY COIL WINDER
--- NOTE | 2017-11-05 09:24 | MDS.RN ---
Information for the mds was obtained from review of the clinical record, interview of resident, staff, and direct observation of resident's care.
== END 2017-10-24 13:25 | disposition home health service (06) | DRG 559 ==
PROVIDERS: Admitting Provider Family Medicine Geriatric Medicine; Family Provider Family Medicine; PCP Family Medicine; Visit Provider Family Medicine Geriatric Medicine
DX: S72.141D Displaced intertrochanteric fracture of right femur, subsequent encounter for closed fracture with routine healing (principal); G93.49 Other encephalopathy; I69.351 Hemiplegia and hemiparesis following cerebral infarction affecting right dominant side; K22.10 Ulcer of esophagus without bleeding; B35.4 Tinea corporis; E78.5 Hyperlipidemia, unspecified; I25.10 Atherosclerotic heart disease of native coronary artery without angina pectoris; F32.9 Major depressive disorder, single episode, unspecified; K21.9 Gastro-esophageal reflux disease without esophagitis; W19.XXXD Unspecified fall, subsequent encounter; I10 Essential (primary) hypertension; I25.2 Old myocardial infarction; Z79.02 Long term (current) use of antithrombotics/antiplatelets; Z86.718 Personal history of other venous thrombosis and embolism; Z79.899 Other long term (current) drug therapy; Z79.82 Long term (current) use of aspirin; Z79.01 Long term (current) use of anticoagulants; Z87.01 Personal history of pneumonia (recurrent); Z87.891 Personal history of nicotine dependence
CPT/HCPCS: 36415; 80048; 82962; 83036; 85025; 97162; 97165; 97802

== ENCOUNTER 2017-10-26 10:51 | Inpatient (IN) | payer MEDICARE, MEDICAID, SELFPAY ==
[2017-10-26 10:56] VITALS: BMI 25.0
[2017-10-26 11:00] VITALS: BP 116/51; PULSE 69; RESP 16; TEMP 36.3; O2SAT 97
--- NOTE | 2017-10-26 11:11 | NURSING ---
Pt arrived at 10:30 via wheelchair from home
--- NOTE | 2017-10-26 14:18 | PCM.HP.STD ---
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 The patient is a 67 year old Female with below past medical history significant for hypertension, hyperlipidemia, coronary artery disease, stroke, TIA, CADASIL syndrome, GERD, and depression who was transferred to [facility] MICU 10/12/2017 due to septic shock, and concern for ARDS after initially presenting to [facility] after a fall and was found to have right hip intertrochanteric hip fracture and underwent ORIF on 10/11/[address] Walsh with immediate post operative course was complicated by coffee ground emesis and aspiration causing hypoxic respiratory failure with septic versus hypovolemic shock. [] 10/14/2017 Aspiration pneumonia treated with Zosyn, Vancomycin, extubated. Upper GI bleed, EGD showed hiatal hernia, 2 esophageal ulcers, no active bleeding, transfused 2 unis PRBC, PPI BID x 1 month. NSTEMI demand ischemia, LHC not pursued, recommend aspirin 81MG, Atorvastatin 40MG. Plavix for CADASIL. Right hip fracture, needs PT/OT. Oxybutynin, hoang catheter discontinued for urinary retention. Right sided weakness from stroke, CADASIL. Lovenox 40MG SC daily for DVT prophylaxis. 10/23/2017 Admit to TCU for rehabilitaton, strengthening, prior to discharge home alone. [] 10/24/2017 Resident discharged home because she wanted to see her cats, family, and her apartment. She was told it was a bad idea, she went home, fell, and realized she could not take care of herself. 10/26/2017 Resident readmitted from home, insurance approved. 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) Stroke (Chronic) Depression (Chronic) Hyperlipidemia (Chronic) Coronary artery disease (Chronic) GERD (gastroesophageal reflux disease) (Chronic) DVT (deep venous thrombosis) (Chronic) Allergies alteplase Allergy (Verified 10/23/17 20:04) Unknown Home Medications: Ambulatory Orders Medication Instructions Recorded Atenolol [Tenormin (beta farheen)] 50 mg PO DAILY 08/14/15 Clopidogrel Bisulfate [Plavix] 75 mg PO DAILY 08/14/15 Lisinopril [Zestril] 10 mg PO DAILY 08/14/15 Aspirin 81 mg PO DAILY@0800 10/23/17 Atorvastatin Calcium [Lipitor] 40 mg PO QHS 10/23/17 Duloxetine HCl 60 mg PO DAILY 10/23/17 Gabapentin [Neurontin] 300 mg PO BIDCM 10/23/17 Melatonin 3 mg PO QHS 10/23/17 Nitroglycerin 0.4 mg SL PRN PRN 10/23/17 Acetaminophen [Tylenol] 1,000 mg PO Q8H PRN PRN tablet 10/24/17 Iron Polysaccharide Complex 150 mg PO DAILYCM 10/26/17 [Ferrex 150] Menthol/Lanolin/Calamine/Znox 1 applic TOPICAL 0600,219910/26/17 [Calmoseptine Ointment] Nystatin Powder [Mycostatin Powder] 1 applic TOPICAL 0600,219910/26/17 Pantoprazole Sodium [Protonix] 40 mg PO BID 10/26/17 Surgical History: - - ORIF right hip. 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 Lives: Alone Smoking Status: Former smoker Tobacco Use: Non-smoker Alcohol: None Drugs: None - *Family History Maternal History Items: No pertinent history Paternal History Items: No pertinent history Review of Systems Constitutional: Denies: Chills, Fever, Weight Change HEENT: Denies: Head Aches, Sinus Congestion, Sinus Drainage Cardiovascular: Denies: Chest Pain, Palpitations Respiratory: Denies: Cough, Shortness of breath at rest, Sputum production Gastrointestinal: Denies: Abdominal Pain, Nausea, Vomiting Genitourinary: Denies: Dysuria Musculoskeletal: Denies: Joint Pain, Joint Tenderness Skin: Denies: Rash, Wounds Neurological: Denies: Numbness, Tingling, Focal weakness Psychiatric: Denies: Anxiety, Depression, Homicidal Ideations, Suicidal Ideations Hematologic/ Lymphatic: Denies: Easy Bruising, Easy Bleeding VTE Information - Inpt Only VTE Present on Admission: No VTE Mechan Device Prophylaxis: Knee High CHINO Hose VTE Pharm Prophylaxis ordered?: Yes - Physical Exam General: Alert, Oriented x3, Cooperative HEENT: Atraumatic, PERRLA, EOMI, Normocephalic Neck: Supple, No JVD, Negative Carotid Bruits Lungs: Clear to auscultation, Normal air movement Cardiovascular: Regular rate, No murmurs Abdomen: Bowel Sounds Present, Soft, Non Tender Extremities: No edema, Capillary Refill Less than 3 Seconds Skin: No rashes, No breakdown Musculoskeletal: No Tenderness to Palpation of Joints or Extremities Neurological: Cranial nerves II-XII grossly intact Psych/Mental Status: Normal Affect, Appropriate Vital Signs Temp Pulse Resp BP Pulse Ox 97.3 F L 69 16 116/51 L 97 10/26/17 11:00 10/26/17 11:00 10/26/17 11:00 10/26/17 11:00 10/26/17 11:00 Oxygen Delivery Method Room Air Weight: 68.1 kg Body Mass Index (BMI) 25.0 Intake and Output for Last 24 Hours 10/24/17 10/25/17 10/26/17 23:59 23:59 23:59 Intake Total 220 / 220 Balance 220 / 220 Assessment/Plan 67 year old female with below past medical history hospitalized for right hip fracture, underwent ORIF 10/11/2017, complicated by upper GI bleed, coffee ground emesis, leading to aspiration pneumonia, acute respiratory failure, admitted to TCU for debility, here for rehabilitation, strengthening, prior to discharge home alone. Debility - PT/OT. Pain - Tylenol 1000MG Q8H PRN mild pain. Bowel - Miralax 17GM BID, Senna/colace 2 tablets BID, Dulcolax 10MG MD daily PRN. Pneumonia vaccination - Administer Prevnar 13 and/or Pneumovax 23 as necessary. DVT prophylaxis - Lovenox 40MG sc daily. Coronary Artery Disease - Atenolol 50MG daily, Lisinopril 10MG daily, Aspirin 81MG daily, NTG 0.4MG Q5M PRN chest pain. Hyperlipidemia - Atorvastatin 40MG QHS. Stroke/CADASIL - Plavix 75MG daily, Aspirin 81MG daily. Depression - Duloxetine 60MG daily. Iron deficiency anemia - Ferrex 150MG daily. Skin irritation - Eucerin BID bilateral feet, legs; Calmoseptine BID coccyx. Neuropathic pain - Gabapentin 300MG BID. Nutrition - Glucerna 120ML TID. Insomnia - Melatonin 3MG QHS. Tinea Corporis - Nystatin powder BID groin, abdominal folds. Esophageal ulcers - Pantoprazole 40MG BID thru 11/14/2017, then 40MG daily.
--- NOTE | 2017-10-26 14:21 | HP.PCM_ITS ---
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 The patient is a 67 year old Female with below past medical history significant for hypertension, hyperlipidemia, coronary artery disease, stroke, TIA, CADASIL syndrome, GERD, and depression who was transferred to [facility] MICU 10/12/2017 due to septic shock, and concern for ARDS after initially presenting to [facility] after a fall and was found to have right hip intertrochanteric hip fracture and underwent ORIF on 10/11/[address] Walsh with immediate post operative course was complicated by coffee ground emesis and aspiration causing hypoxic respiratory failure with septic versus hypovolemic shock. [] 10/14/2017 Aspiration pneumonia treated with Zosyn, Vancomycin, extubated. Upper GI bleed, EGD showed hiatal hernia, 2 esophageal ulcers, no active bleeding, transfused 2 unis PRBC, PPI BID x 1 month. NSTEMI demand ischemia, LHC not pursued, recommend aspirin 81MG, Atorvastatin 40MG. Plavix for CADASIL. Right hip fracture, needs PT/OT. Oxybutynin, hoang catheter discontinued for urinary retention. Right sided weakness from stroke, CADASIL. Lovenox 40MG SC daily for DVT prophylaxis. 10/23/2017 Admit to TCU for rehabilitaton, strengthening, prior to discharge home alone. [] 10/24/2017 Resident discharged home because she wanted to see her cats, family, and her apartment. She was told it was a bad idea, she went home, fell, and realized she could not take care of herself. 10/26/2017 Resident readmitted from home, insurance approved. 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) Stroke (Chronic) Depression (Chronic) Hyperlipidemia (Chronic) Coronary artery disease (Chronic) GERD (gastroesophageal reflux disease) (Chronic) DVT (deep venous thrombosis) (Chronic) Allergies alteplase Allergy (Verified 10/23/17 20:04) Unknown Home Medications: Ambulatory Orders Medication Instructions Recorded Atenolol [Tenormin (beta farheen)] 50 mg PO DAILY 08/14/15 Clopidogrel Bisulfate [Plavix] 75 mg PO DAILY 08/14/15 Lisinopril [Zestril] 10 mg PO DAILY 08/14/15 Aspirin 81 mg PO DAILY@0800 10/23/17 Atorvastatin Calcium [Lipitor] 40 mg PO QHS 10/23/17 Duloxetine HCl 60 mg PO DAILY 10/23/17 Gabapentin [Neurontin] 300 mg PO BIDCM 10/23/17 Melatonin 3 mg PO QHS 10/23/17 Nitroglycerin 0.4 mg SL PRN PRN 10/23/17 Acetaminophen [Tylenol] 1,000 mg PO Q8H PRN PRN tablet 10/24/17 Iron Polysaccharide Complex 150 mg PO DAILYCM 10/26/17 [Ferrex 150] Menthol/Lanolin/Calamine/Znox 1 applic TOPICAL 0600,219910/26/17 [Calmoseptine Ointment] Nystatin Powder [Mycostatin Powder] 1 applic TOPICAL 0600,219910/26/17 Pantoprazole Sodium [Protonix] 40 mg PO BID 10/26/17 Surgical History: - - ORIF right hip. 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 Lives: Alone Smoking Status: Former smoker Tobacco Use: Non-smoker Alcohol: None Drugs: None - *Family History Maternal History Items: No pertinent history Paternal History Items: No pertinent history Review of Systems Constitutional: Denies: Chills, Fever, Weight Change HEENT: Denies: Head Aches, Sinus Congestion, Sinus Drainage Cardiovascular: Denies: Chest Pain, Palpitations Respiratory: Denies: Cough, Shortness of breath at rest, Sputum production Gastrointestinal: Denies: Abdominal Pain, Nausea, Vomiting Genitourinary: Denies: Dysuria Musculoskeletal: Denies: Joint Pain, Joint Tenderness Skin: Denies: Rash, Wounds Neurological: Denies: Numbness, Tingling, Focal weakness Psychiatric: Denies: Anxiety, Depression, Homicidal Ideations, Suicidal Ideations Hematologic/ Lymphatic: Denies: Easy Bruising, Easy Bleeding VTE Information - Inpt Only VTE Present on Admission: No VTE Mechan Device Prophylaxis: Knee High CHINO Hose VTE Pharm Prophylaxis ordered?: Yes - Physical Exam General: Alert, Oriented x3, Cooperative HEENT: Atraumatic, PERRLA, EOMI, Normocephalic Neck: Supple, No JVD, Negative Carotid Bruits Lungs: Clear to auscultation, Normal air movement Cardiovascular: Regular rate, No murmurs Abdomen: Bowel Sounds Present, Soft, Non Tender Extremities: No edema, Capillary Refill Less than 3 Seconds Skin: No rashes, No breakdown Musculoskeletal: No Tenderness to Palpation of Joints or Extremities Neurological: Cranial nerves II-XII grossly intact Psych/Mental Status: Normal Affect, Appropriate Vital Signs Temp Pulse Resp BP Pulse Ox 97.3 F L 69 16 116/51 L 97 10/26/17 11:00 10/26/17 11:00 10/26/17 11:00 10/26/17 11:00 10/26/17 11:00 Oxygen Delivery Method Room Air Weight: 68.1 kg Body Mass Index (BMI) 25.0 Intake and Output for Last 24 Hours 10/24/17 10/25/17 10/26/17 23:59 23:59 23:59 Intake Total 220 / 220 Balance 220 / 220 Assessment/Plan 67 year old female with below past medical history hospitalized for right hip fracture, underwent ORIF 10/11/2017, complicated by upper GI bleed, coffee ground emesis, leading to aspiration pneumonia, acute respiratory failure, admitted to TCU for debility, here for rehabilitation, strengthening, prior to discharge home alone. * Debility - PT/OT. * Pain - Tylenol 1000MG Q8H PRN mild pain. * Bowel - Miralax 17GM BID, Senna/colace 2 tablets BID, Dulcolax 10MG NM daily PRN. * Pneumonia vaccination - Administer Prevnar 13 and/or Pneumovax 23 as necessary. * DVT prophylaxis - Lovenox 40MG sc daily. * Coronary Artery Disease - Atenolol 50MG daily, Lisinopril 10MG daily, Aspirin 81MG daily, NTG 0.4MG Q5M PRN chest pain. * Hyperlipidemia - Atorvastatin 40MG QHS. * Stroke/CADASIL - Plavix 75MG daily, Aspirin 81MG daily. * Depression - Duloxetine 60MG daily. * Iron deficiency anemia - Ferrex 150MG daily. * Skin irritation - Eucerin BID bilateral feet, legs; Calmoseptine BID coccyx. * Neuropathic pain - Gabapentin 300MG BID. * Nutrition - Glucerna 120ML TID. * Insomnia - Melatonin 3MG QHS. * Tinea Corporis - Nystatin powder BID groin, abdominal folds. * Esophageal ulcers - Pantoprazole 40MG BID thru 11/14/2017, then 40MG daily.
[2017-10-26 15:13] VITALS: BP 101/57; PULSE 66; RESP 18; TEMP 36.9; O2SAT 95
--- NOTE | 2017-10-26 15:22 | CHAPLAIN ---
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
[2017-10-26] MEDS: Gabapentin 300 MG Capsule PO (17:40)
[2017-10-26] MEDS: Pantoprazole Sodium 40 MG Tablet PO (17:40)
[2017-10-26] MEDS: Clopidogrel Bisulfate 75 MG Tablet PO (17:40)
[2017-10-26] MEDS: Nystatin Powder 15gm Bottle 1 APPLIC TOPICAL (20:38)
[2017-10-26] MEDS: Menthol/Lanolin/Calamine/Znox 113 GM Tube 1 APPLIC TOPICAL (20:38)
[2017-10-26] MEDS: MELATONIN 3 MG TABLET PO (20:38)
[2017-10-26] MEDS: Atorvastatin Calcium 40 MG Tablet PO (20:38)
[2017-10-27] MEDS: Menthol/Lanolin/Calamine/Znox 113 GM Tube 1 APPLIC TOPICAL ×2 (04:52→22:04)
[2017-10-27] MEDS: Enoxaparin 40 MG/0.4 ML Syringe SC (04:54)
[2017-10-27] MEDS: Atenolol 50 MG Tablet PO (04:54)
[2017-10-27] MEDS: Lisinopril 20 MG Tablet 10 MG PO (04:54)
[2017-10-27] MEDS: DULoxetine Hcl 30 MG Capsule 60 MG PO (04:54)
[2017-10-27] MEDS: Pantoprazole Sodium 40 MG Tablet PO ×2 (04:54→16:39)
[2017-10-27] MEDS: Nystatin Powder 15gm Bottle 1 APPLIC TOPICAL ×2 (04:55→22:04)
[2017-10-27 05:00] VITALS: BP 127/64; PULSE 82
[2017-10-27 07:56] LABS: Absolute Lymphocyte Count 2.08 X10^3/ul (0.83-4.51); Absolute Neutrophil Count 3.6 X10^3/uL (2.0-7.7); Basophil# 0.08 X10^3/uL; Basophil% 1.1 % (0-1); Eosinophils% 4.3 % (0-5); Hematocrit 31.3 % (37-47); Hemoglobin 9.9 g/dl (12.0-15.0); Lymphocyte # 2.08 X10^3/ul (4.0); Lymphocyte % 29.7 % (19-41); Mean Corp Hgb Conc 31.6 g/gl (32-36); Mean Corpuscular Hgb 29.6 pg (27.0-32.0); Mean Corpuscular Volume 93.4 fL (81-99); Mean Platelet Vol. 9.8 fl (6.2-12.0); Monocyte# 0.93 X10^3/uL; Monocyte% 13.3 % (0-10); Neutrophil % 51.5 % (47-70); POSITIVE COUNT NO; POSITIVE DIFFERENTIAL NO; POSITIVE MORPHOLOGY NO; Platelet Count 580 K/mm3 (150-450); RBC Distribution Width CV 15.3 % (11.6-14.6); RBC Distribution Width SD 49.9 fl (35.1-43.9); Red Blood Count 3.35 M/mm3 (4.2-5.4)
[2017-10-27 08:09] LABS: Anion Gap 8 (5-15); BUN 10 mg/dL (7-18); BUN/Creat Ratio 17.6 RATIO (10-20); Calcium,Total 8.2 mg/dL (8.5-10.1); Chloride 108 mmol/L (98-107); Creatinine, Serum 0.57 mg/dL (0.55-1.02); EST Glomerular Filtration Rate 113 mL/min (>60); Est Glom Filt Rate - Afr Amer 137 mL/min (>60); Estimated Creatinine Clearance 49.12 ml/min; Glucose 97 mg/dL (74-106); Potassium 3.6 mmol/L (3.5-5.1); Sodium Level 142 mmol/L (136-145)
[2017-10-27] MEDS: Gabapentin 300 MG Capsule PO ×2 (08:47→16:39)
[2017-10-27] MEDS: Aspirin 81 MG TAB.CHEW PO (08:47)
[2017-10-27] MEDS: Iron Polysaccharide Complex 150 MG CAPSULE PO (08:47)
[2017-10-27] MEDS: Acetaminophen 500 MG Tablet 1000 MG PO ×2 (08:47→22:00)
[2017-10-27 15:47] VITALS: BP 103/49; PULSE 57; RESP 16; TEMP 36.7; O2SAT 97
[2017-10-27] MEDS: Tuberculin,Purif.prot.deriv. 50 TU/ML Vial 5 ML ID (17:07)
[2017-10-27] MEDS: Atorvastatin Calcium 40 MG Tablet PO (22:00)
[2017-10-27] MEDS: MELATONIN 3 MG TABLET PO (22:00)
--- NOTE | 2017-10-27 22:04 | NURSING ---
Pt bladder scanned for 383. With encouragement agreed to allow staff to straight cath for urine spec as ordered. Tolerated well with little discomfort. Spec sent to lab. Pt brief changed and repositioned for comfort. Continuing to monitor.
[2017-10-27 22:15] LABS: Mucous, Urine 0 SEEN /hpf (<or=2+); Red Blood Cells-Urine 0 SEEN /hpf (0-5)
[2017-10-27 22:18] LABS: Color, Urine Yellow (Yellow); Glucose, Dipstick Normal (Normal); Ketone-Dipstick Negative (Negative); Leukocyte Esterase-Dipstick 500 /ul (Negative); Nitrite-Dipstick Negative (Negative); Occult Blood-Urine 10 /ul (Negative); Protein-Dipstick Negative (Negative); Specific Gravity, Urine 1.015 (1.002-1.030); Urine Bilirubin Dipstick Negative (Negative); Urine Clarity Sl. Cloudy (Clear); Urine Urobilinogen 1 mg/dl (Normal)
[2017-10-27 22:30] LABS: White Blood Cells 25-50 SEEN /hpf (0-5)
[2017-10-27 22:31] LABS: Bacteria 3+ /hpf (None Seen); Squamous Epithelial Cells - UA 0-5 SEEN /hpf (5-10)
[2017-10-28] MEDS: Lisinopril 20 MG Tablet 10 MG PO (06:13)
[2017-10-28] MEDS: Clopidogrel Bisulfate 75 MG Tablet PO (06:13)
[2017-10-28] MEDS: Atenolol 50 MG Tablet PO (06:13)
[2017-10-28] MEDS: DULoxetine Hcl 30 MG Capsule 60 MG PO (06:14)
[2017-10-28] MEDS: Enoxaparin 40 MG/0.4 ML Syringe SC (06:14)
[2017-10-28] MEDS: Pantoprazole Sodium 40 MG Tablet PO ×2 (06:14→16:50)
[2017-10-28] MEDS: Menthol/Lanolin/Calamine/Znox 113 GM Tube 1 APPLIC TOPICAL ×2 (06:15→21:19)
[2017-10-28] MEDS: Nystatin Powder 15gm Bottle 1 APPLIC TOPICAL ×2 (06:16→21:19)
[2017-10-28] MEDS: Iron Polysaccharide Complex 150 MG CAPSULE PO (08:34)
[2017-10-28] MEDS: Aspirin 81 MG TAB.CHEW PO (08:34)
[2017-10-28] MEDS: Acetaminophen 500 MG Tablet 1000 MG PO ×2 (08:34→21:17)
[2017-10-28] MEDS: Gabapentin 300 MG Capsule PO ×2 (08:34→16:50)
[2017-10-28 10:00] VITALS: PULSE 64; O2SAT 94
[2017-10-28 16:00] VITALS: BP 121/49; PULSE 80; RESP 17; TEMP 36.7; O2SAT 97
[2017-10-28] MEDS: Cefadroxil 500 MG CAPSULE PO (16:50)
[2017-10-28] MEDS: Atorvastatin Calcium 40 MG Tablet PO (21:17)
[2017-10-28] MEDS: MELATONIN 3 MG TABLET PO (21:17)
[2017-10-29] MEDS: DULoxetine Hcl 30 MG Capsule 60 MG PO (05:27)
[2017-10-29] MEDS: Lisinopril 20 MG Tablet 10 MG PO (05:27)
[2017-10-29] MEDS: Pantoprazole Sodium 40 MG Tablet PO ×2 (05:28→16:59)
[2017-10-29] MEDS: Atenolol 50 MG Tablet PO (05:28)
[2017-10-29] MEDS: Clopidogrel Bisulfate 75 MG Tablet PO (05:28)
[2017-10-29] MEDS: Cefadroxil 500 MG CAPSULE PO ×2 (05:28→16:59)
[2017-10-29] MEDS: Enoxaparin 40 MG/0.4 ML Syringe SC (05:28)
[2017-10-29] MEDS: Nystatin Powder 15gm Bottle 1 APPLIC TOPICAL ×2 (05:32→20:48)
[2017-10-29] MEDS: Menthol/Lanolin/Calamine/Znox 113 GM Tube 1 APPLIC TOPICAL ×2 (05:32→20:48)
[2017-10-29] MEDS: Acetaminophen 500 MG Tablet 1000 MG PO ×2 (08:28→16:59)
[2017-10-29] MEDS: Iron Polysaccharide Complex 150 MG CAPSULE PO (08:30)
[2017-10-29] MEDS: Gabapentin 300 MG Capsule PO ×2 (08:30→17:00)
[2017-10-29] MEDS: Aspirin 81 MG TAB.CHEW PO (08:30)
[2017-10-29 10:00] VITALS: PULSE 63; RESP 16; O2SAT 96
--- NOTE | 2017-10-29 11:57 | PCM.PN.RX ---
<Bc Figueroa D - Last Filed: 10/29/17 11:57> Progress Note - Pharmacy Subjective: TCU Admission Objective: Allergies alteplase Allergy (Verified 10/23/17 20:04) Unknown Home Medications Medication Instructions Recorded Atenolol [Tenormin (beta rupesh)] 50 mg PO DAILY 08/14/15 Clopidogrel Bisulfate [Plavix] 75 mg PO DAILY 08/14/15 Lisinopril [Zestril] 10 mg PO DAILY 08/14/15 Aspirin 81 mg PO DAILY@0800 10/23/17 Atorvastatin Calcium [Lipitor] 40 mg PO QHS 10/23/17 Duloxetine HCl 60 mg PO DAILY 10/23/17 Gabapentin [Neurontin] 300 mg PO BIDCM 10/23/17 Melatonin 3 mg PO QHS 10/23/17 Nitroglycerin 0.4 mg SL PRN PRN 10/23/17 Acetaminophen [Tylenol] 1,000 mg PO Q8H PRN PRN tablet 10/24/17 Iron Polysaccharide Complex 150 mg PO DAILY 10/26/17 [Ferrex 150] Menthol/Lanolin/Calamine/Znox 1 applic TOPICAL 0600,0 10/26/17 [Calmoseptine Ointment] Nystatin Powder [Mycostatin Powder] 1 applic TOPICAL 0600,0 10/26/17 Pantoprazole Sodium [Protonix] 40 mg PO BID 10/26/17 Current Medications Generic Name Dose Route Start Last Admin Trade Name Freq PRN Reason Stop Dose Admin Acetaminophen 1,000 mg 10/26/17 11:04 10/29/17 08:28 Tylenol PO 1,000 mg Q8H PRN PRN Administration MILD PAIN (1-3/10) Aspirin 81 mg 10/27/17 08:00 10/29/17 08:30 Aspirin, Baby PO 81 mg DAILY@0800 [facility] Administration Atenolol 50 mg 10/27/17 06:00 10/29/17 05:28 Tenormin (Beta Rupesh) PO 50 mg DAILY [facility] Administration Atorvastatin Calcium 40 mg 10/26/17 22:00 10/28/17 21:17 Lipitor PO 40 mg QHS [facility] Administration Bisacodyl 10 mg 10/26/17 14:30 Dulcolax RECTAL DAILY PRN Constipation Calamine/Phenol 1 applic 10/26/17 22:00 10/29/17 05:32 Calmoseptine Ointment TOPICAL 1 applicatio 0600,2200 [facility] Administration Protocol Cefadroxil 500 mg 10/28/17 18:00 10/29/17 05:28 Duricef PO 11/04/17 18:01 500 mg BID [facility] Administration Clopidogrel Bisulfate 75 mg 10/27/17 06:00 10/29/17 05:28 Plavix PO 75 mg DAILY [facility] Administration Duloxetine HCl 60 mg 10/27/17 06:00 10/29/17 05:27 Cymbalta PO 60 mg DAILY [facility] Administration Enoxaparin Sodium 40 mg 10/27/17 06:00 10/29/17 05:28 Lovenox SC 40 mg DAILY@0600 [facility] Administration Gabapentin 300 mg 10/26/17 17:00 10/29/17 08:30 Neurontin PO 300 mg BIDCM [facility] Administration Lisinopril 10 mg 10/27/17 06:00 10/29/17 05:27 Zestril PO 10 mg DAILY [facility] Administration Melatonin 3 mg 10/26/17 22:00 10/28/17 21:17 Melatonin PO 3 mg QHS [facility] Administration Nitroglycerin 0.4 mg 10/26/17 11:14 Nitrostat SUBLINGUAL Q5M PRN CARDIAC/CHEST PAIN Nystatin 1 applic 10/26/17 22:00 10/29/17 05:32 Mycostatin Powder TOPICAL 1 applicatio 0600,2200 [facility] Administration Protocol Pantoprazole Sodium 40 mg 10/26/17 18:00 10/29/17 05:28 Protonix PO 11/14/17 23:59 40 mg BID [facility] Administration Pantoprazole Sodium 40 mg 11/15/17 06:00 Protonix PO DAILY [facility] Polyethylene Glycol 17 gm 10/26/17 18:00 10/29/17 05:28 Miralax PO Not Given BID [facility] Polysaccharide Iron Complex 150 mg 10/27/17 08:00 10/29/17 08:30 [facility] 150 [facility] Senna/Docusate Sodium 2 tablet 10/26/17 18:00 10/29/17 05:28 Senokot-S, Malika-Colace PO Not Given BID [facility] Tuberculin PPD 5 tu 11/03/17 10:00 Tubersol, Aplisol, Ppd ID 11/03/17 10:01 X1 ONE Vital Signs Temp Pulse Resp BP Pulse Ox 98.0 F 63 16 121/49 H 96 10/28/17 16:00 10/29/17 10:00 10/29/17 10:00 10/28/17 16:00 10/29/17 10:00 Oxygen Delivery Method Room Air Weight: 68.1 kg Body Mass Index (BMI) 25.0 Sodium 142 mmol/L (136-145) 10/27/17 07:30 Potassium 3.6 mmol/L (3.5-5.1) 10/27/17 07:30 Chloride 108 mmol/L (98-107) H 10/27/17 07:30 Carbon Dioxide 26.0 mmol/L (21.0-32.0) 10/27/17 07:30 Anion Gap 8 (5-15) 10/27/17 07:30 BUN 10 mg/dL (7-18) 10/27/17 07:30 Creatinine 0.57 mg/dL (0.55-1.02) 10/27/17 07:30 Est GFR (MDRD) Af Amer 137 mL/min (>60) 10/27/17 07:30 Est GFR (MDRD) Non-Af 113 mL/min (>60) 10/27/17 07:30 BUN/Creatinine Ratio 17.6 RATIO (10-20) 10/27/17 07:30 Glucose 97 mg/dL (74-106) 10/27/17 07:30 Assessment/Plan: 1) Pain APAP for mild pain, gabapentin. Continue to monitor prn medication use, daily pain scores. 2) CAD/Stroke ASA, atenolol, atorvastatin, clopidogrel, lisinopril, ntg prn. BP/HR within goal ranges, K wnl, BUN/SCr at baseline, no lipids in EMR, hepatic enzymes last checked 2013. Continue to monitor BP/HR, renal function, electrolytes, prn medication use, lipids/enzymes. 3) GI Pantoprazole taper to daily. Continue to monitor s/s GI distress. 4) DVT PPx Enoxaparin daily. Continue to monitor s/s bleeding. 5) Nutrition Fe supplement. Continue to monitor clinically. 6) Derm Calmoseptine, nystatin, emollient. Continue to monitor clinically. 7) Sleep Melatonin at HS. Continue to monitor for insomnia. Psychotropic Medications: 8) Depression Duloxetine daily. Continue to monitor s/s depression. Unnecessary Medications: None Bowel Regimen: 9) Senna/s, PEG, prn bisacodyl. Continue to monitor prn medication use, for constipation/diarrhea. Date of Note:: 10/29/17 - Provider Comments Provider responsibility: Provider responsible to enter orders to implement recommendations <Lars Castro Chi - Last Filed: 10/29/17 18:14> Progress Note - Pharmacy Subjective: [] Objective: Allergies alteplase Allergy (Verified 10/23/17 20:04) Unknown Home Medications Medication Instructions Recorded Atenolol [Tenormin (beta rupesh)] 50 mg PO DAILY 08/14/15 Clopidogrel Bisulfate [Plavix] 75 mg PO DAILY 08/14/15 Lisinopril [Zestril] 10 mg PO DAILY 08/14/15 Aspirin 81 mg PO DAILY@0800 10/23/17 Atorvastatin Calcium [Lipitor] 40 mg PO QHS 10/23/17 Duloxetine HCl 60 mg PO DAILY 10/23/17 Gabapentin [Neurontin] 300 mg PO BIDCM 10/23/17 Melatonin 3 mg PO QHS 10/23/17 Nitroglycerin 0.4 mg SL PRN PRN 10/23/17 Acetaminophen [Tylenol] 1,000 mg PO Q8H PRN PRN tablet 10/24/17 Iron Polysaccharide Complex 150 mg PO DAILYCM 10/26/17 [Ferrex 150] Menthol/Lanolin/Calamine/Znox 1 applic TOPICAL 06,219910/26/17 [Calmoseptine Ointment] Nystatin Powder [Mycostatin Powder] 1 applic TOPICAL 0600,219910/26/17 Pantoprazole Sodium [Protonix] 40 mg PO BID 10/26/17 Current Medications Generic Name Dose Route Start Last Admin Trade Name Freq PRN Reason Stop Dose Admin Acetaminophen 1,000 mg 10/26/17 11:04 10/29/17 16:59 Tylenol PO 1,000 mg Q8H PRN PRN Administration MILD PAIN (1-3/10) Aspirin 81 mg 10/27/17 08:00 10/29/17 08:30 Aspirin, Baby PO 81 mg DAILY@0800 [facility] Administration Atenolol 50 mg 10/27/17 06:00 03/26/18 05:28 Tenormin (Beta Rupesh) PO 50 mg DAILY [facility] Administration Atorvastatin Calcium 40 mg 10/26/17 22:00 10/28/17 21:17 Lipitor PO 40 mg QHS [facility] Administration Bisacodyl 10 mg 10/26/17 14:30 Dulcolax RECTAL DAILY PRN Constipation Calamine/Phenol 1 applic 10/26/17 22:00 10/29/17 05:32 Calmoseptine Ointment TOPICAL 1 applicatio 0600,2200 [facility] Administration Protocol Cefadroxil 500 mg 10/28/17 18:00 10/29/17 16:59 Duricef PO 11/04/17 18:01 500 mg BID [facility] Administration Clopidogrel Bisulfate 75 mg 10/27/17 06:00 10/29/17 05:28 Plavix PO 75 mg DAILY [facility] Administration Duloxetine HCl 60 mg 10/27/17 06:00 10/29/17 05:27 Cymbalta PO 60 mg DAILY [facility] Administration Enoxaparin Sodium 40 mg 10/27/17 06:00 10/29/17 05:28 Lovenox SC 40 mg DAILY@0600 [facility] Administration Gabapentin 300 mg 10/26/17 17:00 10/29/17 17:00 [facility] Lisinopril 10 mg 10/27/17 06:00 10/29/17 05:27 Zestril PO 10 mg DAILY [facility] Administration Melatonin 3 mg 10/26/17 22:00 10/28/17 21:17 Melatonin PO 3 mg QHS [facility] Administration Nitroglycerin 0.4 mg 10/26/17 11:14 Nitrostat SUBLINGUAL Q5M PRN CARDIAC/CHEST PAIN Nystatin 1 applic 10/26/17 22:00 10/29/17 05:32 Mycostatin Powder TOPICAL 1 applicatio 0600,2200 [facility] Administration Protocol Pantoprazole Sodium 40 mg 10/26/17 18:00 10/29/17 16:59 Protonix PO 11/14/17 23:59 40 mg BID [facility] Administration Pantoprazole Sodium 40 mg 11/15/17 06:00 Protonix PO DAILY [facility] Polyethylene Glycol 17 gm 10/26/17 18:00 10/29/17 16:55 Miralax PO Not Given BID [facility] Polysaccharide Iron Complex 150 mg 10/27/17 08:00 10/29/17 08:30 Ferrex 150 PO 150 mg DAILYCM [facility] Administration Senna/Docusate Sodium 2 tablet 10/26/17 18:00 10/29/17 16:55 Senokot-S, Malika-Colace PO Not Given BID [facility] Tuberculin PPD 5 tu 11/03/17 10:00 Tubersol, Aplisol, Ppd ID 11/03/17 10:01 X1 ONE Vital Signs Temp Pulse Resp BP Pulse Ox 97.4 F L 64 20 H 128/72 H 94 10/29/17 15:25 10/29/17 15:25 10/29/17 15:25 10/29/17 15:25 10/29/17 15:25 Oxygen Delivery Method Room Air Weight: 68.1 kg Body Mass Index (BMI) 25.0 Sodium 142 mmol/L (136-145) 10/27/17 07:30 Potassium 3.6 mmol/L (3.5-5.1) 10/27/17 07:30 Chloride 108 mmol/L (98-107) H 10/27/17 07:30 Carbon Dioxide 26.0 mmol/L (21.0-32.0) 10/27/17 07:30 Anion Gap 8 (5-15) 10/27/17 07:30 BUN 10 mg/dL (7-18) 10/27/17 07:30 Creatinine 0.57 mg/dL (0.55-1.02) 10/27/17 07:30 Est GFR (MDRD) Af Amer 137 mL/min (>60) 10/27/17 07:30 Est GFR (MDRD) Non-Af 113 mL/min (>60) 10/27/17 07:30 BUN/Creatinine Ratio 17.6 RATIO (10-20) 10/27/17 07:30 Glucose 97 mg/dL (74-106) 10/27/17 07:30 Assessment/Plan: Psychotropic Medications: Unnecessary Medications: Bowel Regimen: - Provider Comments Provider responsibility: Provider responsible to enter orders to implement recommendations Provider Comments to Recommendations by Pharmacy: Agree
--- NOTE | 2017-10-29 12:00 | PHA.CONS_ITS ---
<Bc Figueroa D - Last Filed: 10/29/17 11:57> Progress Note - Pharmacy Subjective: TCU Admission Objective: Allergies alteplase Allergy (Verified 10/23/17 20:04) Unknown Home Medications Medication Instructions Recorded Atenolol [Tenormin (beta rupesh)] 50 mg PO DAILY 08/14/15 Clopidogrel Bisulfate [Plavix] 75 mg PO DAILY 08/14/15 Lisinopril [Zestril] 10 mg PO DAILY 08/14/15 Aspirin 81 mg PO DAILY@0800 10/23/17 Atorvastatin Calcium [Lipitor] 40 mg PO QHS 10/23/17 Duloxetine HCl 60 mg PO DAILY 10/23/17 Gabapentin [Neurontin] 300 mg PO BIDCM 10/23/17 Melatonin 3 mg PO QHS 10/23/17 Nitroglycerin 0.4 mg SL PRN PRN 10/23/17 Acetaminophen [Tylenol] 1,000 mg PO Q8H PRN PRN tablet 10/24/17 Iron Polysaccharide Complex 150 mg PO DAILY 10/26/17 [Ferrex 150] Menthol/Lanolin/Calamine/Znox 1 applic TOPICAL 0600,0 10/26/17 [Calmoseptine Ointment] Nystatin Powder [Mycostatin Powder] 1 applic TOPICAL 0600,0 10/26/17 Pantoprazole Sodium [Protonix] 40 mg PO BID 10/26/17 Current Medications Generic Name Dose Route Start Last Admin Trade Name Freq PRN Reason Stop Dose Admin Acetaminophen 1,000 mg 10/26/17 11:04 10/29/17 08:28 Tylenol PO 1,000 mg Q8H PRN PRN Administration MILD PAIN (1-3/10) Aspirin 81 mg 10/27/17 08:00 10/29/17 08:30 Aspirin, Baby PO 81 mg DAILY@0800 [facility] Administration Atenolol 50 mg 10/27/17 06:00 10/29/17 05:28 Tenormin (Beta Rupesh) PO 50 mg DAILY [facility] Administration Atorvastatin Calcium 40 mg 10/26/17 22:00 10/28/17 21:17 Lipitor PO 40 mg QHS [facility] Administration Bisacodyl 10 mg 10/26/17 14:30 Dulcolax RECTAL DAILY PRN Constipation Calamine/Phenol 1 applic 10/26/17 22:00 10/29/17 05:32 Calmoseptine Ointment TOPICAL 1 applicatio 0600,2200 [facility] Administration Protocol Cefadroxil 500 mg 10/28/17 18:00 10/29/17 05:28 Duricef PO 11/04/17 18:01 500 mg BID [facility] Administration Clopidogrel Bisulfate 75 mg 10/27/17 06:00 10/29/17 05:28 Plavix PO 75 mg DAILY [facility] Administration Duloxetine HCl 60 mg 10/27/17 06:00 10/29/17 05:27 Cymbalta PO 60 mg DAILY [facility] Administration Enoxaparin Sodium 40 mg 10/27/17 06:00 10/29/17 05:28 Lovenox SC 40 mg DAILY@0600 [facility] Administration Gabapentin 300 mg 10/26/17 17:00 10/29/17 08:30 Neurontin PO 300 mg BIDCM [facility] Administration Lisinopril 10 mg 10/27/17 06:00 10/29/17 05:27 Zestril PO 10 mg DAILY [facility] Administration Melatonin 3 mg 10/26/17 22:00 10/28/17 21:17 Melatonin PO 3 mg QHS [facility] Administration Nitroglycerin 0.4 mg 10/26/17 11:14 Nitrostat SUBLINGUAL Q5M PRN CARDIAC/CHEST PAIN Nystatin 1 applic 10/26/17 22:00 10/29/17 05:32 Mycostatin Powder TOPICAL 1 applicatio 0600,2200 [facility] Administration Protocol Pantoprazole Sodium 40 mg 10/26/17 18:00 10/29/17 05:28 Protonix PO 11/14/17 23:59 40 mg BID [facility] Administration Pantoprazole Sodium 40 mg 11/15/17 06:00 Protonix PO DAILY [facility] Polyethylene Glycol 17 gm 10/26/17 18:00 10/29/17 05:28 Miralax PO Not Given BID [facility] Polysaccharide Iron Complex 150 mg 10/27/17 08:00 10/29/17 08:30 Ferrex 150 [facility] Senna/Docusate Sodium 2 tablet 10/26/17 18:00 10/29/17 05:28 Senokot-S, Malika-Colace PO Not Given BID [facility] Tuberculin PPD 5 tu 11/03/17 10:00 Tubersol, Aplisol, Ppd ID 11/03/17 10:01 X1 ONE Vital Signs Temp Pulse Resp BP Pulse Ox 98.0 F 63 16 121/49 H 96 10/28/17 16:00 10/29/17 10:00 10/29/17 10:00 10/28/17 16:00 10/29/17 10:00 Oxygen Delivery Method Room Air Weight: 68.1 kg Body Mass Index (BMI) 25.0 Sodium 142 mmol/L (136-145) 10/27/17 07:30 Potassium 3.6 mmol/L (3.5-5.1) 10/27/17 07:30 Chloride 108 mmol/L (98-107) H 10/27/17 07:30 Carbon Dioxide 26.0 mmol/L (21.0-32.0) 10/27/17 07:30 Anion Gap 8 (5-15) 10/27/17 07:30 BUN 10 mg/dL (7-18) 10/27/17 07:30 Creatinine 0.57 mg/dL (0.55-1.02) 10/27/17 07:30 Est GFR (MDRD) Af Amer 137 mL/min (>60) 10/27/17 07:30 Est GFR (MDRD) Non-Af 113 mL/min (>60) 10/27/17 07:30 BUN/Creatinine Ratio 17.6 RATIO (10-20) 10/27/17 07:30 Glucose 97 mg/dL (74-106) 10/27/17 07:30 Assessment/Plan: 1) Pain APAP for mild pain, gabapentin. Continue to monitor prn medication use, daily pain scores. 2) CAD/Stroke ASA, atenolol, atorvastatin, clopidogrel, lisinopril, ntg prn. BP/HR within goal ranges, K wnl, BUN/SCr at baseline, no lipids in EMR, hepatic enzymes last checked 2013. Continue to monitor BP/HR, renal function, electrolytes, prn medication use, lipids/enzymes. 3) GI Pantoprazole taper to daily. Continue to monitor s/s GI distress. 4) DVT PPx Enoxaparin daily. Continue to monitor s/s bleeding. 5) Nutrition Fe supplement. Continue to monitor clinically. 6) Derm Calmoseptine, nystatin, emollient. Continue to monitor clinically. 7) Sleep Melatonin at HS. Continue to monitor for insomnia. Psychotropic Medications: 8) Depression Duloxetine daily. Continue to monitor s/s depression. Unnecessary Medications: None Bowel Regimen: 9) Senna/s, PEG, prn bisacodyl. Continue to monitor prn medication use, for constipation/diarrhea. Date of Note:: 10/29/17 - Provider Comments Provider responsibility: Provider responsible to enter orders to implement recommendations <Lars Castro Chi - Last Filed: 10/29/17 18:14> Progress Note - Pharmacy Subjective: [] Objective: Allergies alteplase Allergy (Verified 10/23/17 20:04) Unknown Home Medications Medication Instructions Recorded Atenolol [Tenormin (beta rupesh)] 50 mg PO DAILY 08/14/15 Clopidogrel Bisulfate [Plavix] 75 mg PO DAILY 08/14/15 Lisinopril [Zestril] 10 mg PO DAILY 08/14/15 Aspirin 81 mg PO DAILY@0800 10/23/17 Atorvastatin Calcium [Lipitor] 40 mg PO QHS 10/23/17 Duloxetine HCl 60 mg PO DAILY 10/23/17 Gabapentin [Neurontin] 300 mg PO BIDCM 10/23/17 Melatonin 3 mg PO QHS 10/23/17 Nitroglycerin 0.4 mg SL PRN PRN 10/23/17 Acetaminophen [Tylenol] 1,000 mg PO Q8H PRN PRN tablet 10/24/17 Iron Polysaccharide Complex 150 mg PO DAILYCM 10/26/17 [Ferrex 150] Menthol/Lanolin/Calamine/Znox 1 applic TOPICAL 06,219910/26/17 [Calmoseptine Ointment] Nystatin Powder [Mycostatin Powder] 1 applic TOPICAL 0600,219910/26/17 Pantoprazole Sodium [Protonix] 40 mg PO BID 10/26/17 Current Medications Generic Name Dose Route Start Last Admin Trade Name Freq PRN Reason Stop Dose Admin Acetaminophen 1,000 mg 10/26/17 11:04 10/29/17 16:59 Tylenol PO 1,000 mg Q8H PRN PRN Administration MILD PAIN (1-3/10) Aspirin 81 mg 10/27/17 08:00 10/29/17 08:30 Aspirin, Baby PO 81 mg DAILY@0800 [facility] Administration Atenolol 50 mg 10/27/17 06:00 03/26/18 05:28 Tenormin (Beta Rupesh) PO 50 mg DAILY [facility] Administration Atorvastatin Calcium 40 mg 10/26/17 22:00 10/28/17 21:17 Lipitor PO 40 mg QHS [facility] Administration Bisacodyl 10 mg 10/26/17 14:30 Dulcolax RECTAL DAILY PRN Constipation Calamine/Phenol 1 applic 10/26/17 22:00 10/29/17 05:32 Calmoseptine Ointment TOPICAL 1 applicatio 0600,2200 [facility] Administration Protocol Cefadroxil 500 mg 10/28/17 18:00 10/29/17 16:59 Duricef PO 11/04/17 18:01 500 mg BID [facility] Administration Clopidogrel Bisulfate 75 mg 10/27/17 06:00 10/29/17 05:28 Plavix PO 75 mg DAILY [facility] Administration Duloxetine HCl 60 mg 10/27/17 06:00 10/29/17 05:27 Cymbalta PO 60 mg DAILY [facility] Administration Enoxaparin Sodium 40 mg 10/27/17 06:00 10/29/17 05:28 Lovenox SC 40 mg DAILY@0600 [facility] Administration Gabapentin 300 mg 10/26/17 17:00 10/29/17 17:00 [facility] Lisinopril 10 mg 10/27/17 06:00 10/29/17 05:27 Zestril PO 10 mg DAILY [facility] Administration Melatonin 3 mg 10/26/17 22:00 10/28/17 21:17 Melatonin PO 3 mg QHS [facility] Administration Nitroglycerin 0.4 mg 10/26/17 11:14 Nitrostat SUBLINGUAL Q5M PRN CARDIAC/CHEST PAIN Nystatin 1 applic 10/26/17 22:00 10/29/17 05:32 Mycostatin Powder TOPICAL 1 applicatio 0600,2200 [facility] Administration Protocol Pantoprazole Sodium 40 mg 10/26/17 18:00 10/29/17 16:59 Protonix PO 11/14/17 23:59 40 mg BID [facility] Administration Pantoprazole Sodium 40 mg 11/15/17 06:00 Protonix PO DAILY [facility] Polyethylene Glycol 17 gm 10/26/17 18:00 10/29/17 16:55 Miralax PO Not Given BID [facility] Polysaccharide Iron Complex 150 mg 10/27/17 08:00 10/29/17 08:30 Ferrex 150 PO 150 mg DAILYCM [facility] Administration Senna/Docusate Sodium 2 tablet 10/26/17 18:00 10/29/17 16:55 Senokot-S, Malika-Colace PO Not Given BID [facility] Tuberculin PPD 5 tu 11/03/17 10:00 Tubersol, Aplisol, Ppd ID 11/03/17 10:01 X1 ONE Vital Signs Temp Pulse Resp BP Pulse Ox 97.4 F L 64 20 H 128/72 H 94 10/29/17 15:25 10/29/17 15:25 10/29/17 15:25 10/29/17 15:25 10/29/17 15:25 Oxygen Delivery Method Room Air Weight: 68.1 kg Body Mass Index (BMI) 25.0 Sodium 142 mmol/L (136-145) 10/27/17 07:30 Potassium 3.6 mmol/L (3.5-5.1) 10/27/17 07:30 Chloride 108 mmol/L (98-107) H 10/27/17 07:30 Carbon Dioxide 26.0 mmol/L (21.0-32.0) 10/27/17 07:30 Anion Gap 8 (5-15) 10/27/17 07:30 BUN 10 mg/dL (7-18) 10/27/17 07:30 Creatinine 0.57 mg/dL (0.55-1.02) 10/27/17 07:30 Est GFR (MDRD) Af Amer 137 mL/min (>60) 10/27/17 07:30 Est GFR (MDRD) Non-Af 113 mL/min (>60) 10/27/17 07:30 BUN/Creatinine Ratio 17.6 RATIO (10-20) 10/27/17 07:30 Glucose 97 mg/dL (74-106) 10/27/17 07:30 Assessment/Plan: Psychotropic Medications: Unnecessary Medications: Bowel Regimen: - Provider Comments Provider responsibility: Provider responsible to enter orders to implement recommendations Provider Comments to Recommendations by Pharmacy: Agree
[2017-10-29 15:25] VITALS: BP 128/72; PULSE 64; RESP 20; TEMP 36.3; O2SAT 94
[2017-10-29] MEDS: Atorvastatin Calcium 40 MG Tablet PO (20:47)
[2017-10-29] MEDS: MELATONIN 3 MG TABLET PO (20:47)
[2017-10-30] MEDS: DULoxetine Hcl 30 MG Capsule 60 MG PO (05:31)
[2017-10-30] MEDS: Cefadroxil 500 MG CAPSULE PO ×2 (05:31→17:02)
[2017-10-30] MEDS: Clopidogrel Bisulfate 75 MG Tablet PO (05:31)
[2017-10-30] MEDS: Enoxaparin 40 MG/0.4 ML Syringe SC (05:31)
[2017-10-30] MEDS: Pantoprazole Sodium 40 MG Tablet PO ×2 (05:31→17:02)
[2017-10-30] MEDS: Atenolol 50 MG Tablet PO (05:31)
[2017-10-30] MEDS: Lisinopril 20 MG Tablet 10 MG PO (05:31)
[2017-10-30] MEDS: Menthol/Lanolin/Calamine/Znox 113 GM Tube 1 APPLIC TOPICAL ×2 (05:32→20:38)
[2017-10-30] MEDS: Nystatin Powder 15gm Bottle 1 APPLIC TOPICAL ×2 (05:32→20:39)
[2017-10-30] MEDS: Gabapentin 300 MG Capsule PO ×2 (08:28→17:02)
[2017-10-30] MEDS: Acetaminophen 500 MG Tablet 1000 MG PO ×2 (08:29→20:43)
[2017-10-30] MEDS: Iron Polysaccharide Complex 150 MG CAPSULE PO (08:29)
[2017-10-30] MEDS: Aspirin 81 MG TAB.CHEW PO (08:29)
[2017-10-30 10:00] VITALS: PULSE 63; RESP 16; O2SAT 97
--- NOTE | 2017-10-30 11:30 | CASEMGMT ---
Insurance: Clinical update sent through [employer] Email. Waiting on continued stay determination. Auth # [id number] LAWRENCE Eugene
[2017-10-30 15:08] VITALS: BP 106/61; PULSE 68; RESP 18; TEMP 36.4; O2SAT 97
[2017-10-30] MEDS: MELATONIN 3 MG TABLET PO (20:39)
[2017-10-30] MEDS: Atorvastatin Calcium 40 MG Tablet PO (20:39)
[2017-10-31] MEDS: Menthol/Lanolin/Calamine/Znox 113 GM Tube 1 APPLIC TOPICAL ×2 (05:23→20:45)
[2017-10-31] MEDS: Enoxaparin 40 MG/0.4 ML Syringe SC (05:24)
[2017-10-31] MEDS: DULoxetine Hcl 30 MG Capsule 60 MG PO (05:24)
[2017-10-31] MEDS: Cefadroxil 500 MG CAPSULE PO ×2 (05:24→17:54)
[2017-10-31 05:25] VITALS: BP 135/74; PULSE 66
[2017-10-31] MEDS: Pantoprazole Sodium 40 MG Tablet PO ×2 (05:25→17:53)
[2017-10-31] MEDS: Nystatin Powder 15gm Bottle 1 APPLIC TOPICAL ×2 (05:25→20:45)
[2017-10-31] MEDS: Lisinopril 20 MG Tablet 10 MG PO (05:25)
[2017-10-31] MEDS: Atenolol 50 MG Tablet PO (05:25)
[2017-10-31] MEDS: Clopidogrel Bisulfate 75 MG Tablet PO (05:25)
[2017-10-31] MEDS: Gabapentin 300 MG Capsule PO ×2 (08:40→17:54)
[2017-10-31] MEDS: Aspirin 81 MG TAB.CHEW PO (08:40)
[2017-10-31] MEDS: Iron Polysaccharide Complex 150 MG CAPSULE PO (08:40)
[2017-10-31] MEDS: Acetaminophen 500 MG Tablet 1000 MG PO (08:40)
--- NOTE | 2017-10-31 09:46 | CASEMGMT ---
Plan of care meeting held. Resident present, no support person present at this time. No discharge date set. Resident planning to discharge home alone at time of discharge. Resident to continue with further care and treatment on the Transitional Care Unit. Pending continued stay approval by insurance, support given. Will continue to follow. Anisha CORRIGAN, [employer]ET[employer] CONTACT REPRESENTATIVE
[2017-10-31 10:00] VITALS: PULSE 68; RESP 18; O2SAT 98
[2017-10-31 15:46] VITALS: BP 111/63; PULSE 67; RESP 20; TEMP 36.4; O2SAT 95
[2017-10-31] MEDS: MELATONIN 3 MG TABLET PO (20:45)
[2017-10-31] MEDS: Atorvastatin Calcium 40 MG Tablet PO (20:45)
[2017-11-01 05:13] VITALS: BP 141/74; PULSE 78
[2017-11-01] MEDS: Enoxaparin 40 MG/0.4 ML Syringe SC (05:15)
[2017-11-01] MEDS: Cefadroxil 500 MG CAPSULE PO ×2 (05:15→17:15)
[2017-11-01] MEDS: Atenolol 50 MG Tablet PO (05:15)
[2017-11-01] MEDS: Pantoprazole Sodium 40 MG Tablet PO ×2 (05:15→17:15)
[2017-11-01] MEDS: Lisinopril 20 MG Tablet 10 MG PO (05:15)
[2017-11-01] MEDS: Acetaminophen 500 MG Tablet 1000 MG PO (05:15)
[2017-11-01] MEDS: DULoxetine Hcl 30 MG Capsule 60 MG PO (05:15)
[2017-11-01] MEDS: Clopidogrel Bisulfate 75 MG Tablet PO (05:15)
[2017-11-01] MEDS: Menthol/Lanolin/Calamine/Znox 113 GM Tube 1 APPLIC TOPICAL ×2 (05:16→21:27)
[2017-11-01] MEDS: Nystatin Powder 15gm Bottle 1 APPLIC TOPICAL ×2 (05:16→21:28)
[2017-11-01] MEDS: Gabapentin 300 MG Capsule PO ×2 (08:15→17:15)
[2017-11-01] MEDS: Iron Polysaccharide Complex 150 MG CAPSULE PO (08:15)
[2017-11-01] MEDS: Aspirin 81 MG TAB.CHEW PO (08:15)
--- NOTE | 2017-11-01 08:18 | CASEMGMT ---
Insurance Continued stay approved with next update due on 11/06/17. Auth#[id number] Anisha CORRIGAN, SPECTROGRAPHER
--- NOTE | 2017-11-01 11:21 | CASEMGMT ---
Brief interview for mental status (BIMS) and resident mood interview (PHQ-9) completed on this day. BIMS score 15. PHQ-9 score 09/01
--- NOTE | 2017-11-01 11:57 | MDS.RN ---
Pain interview for SUSIE 11/02/17 completed.
[2017-11-01 15:53] VITALS: BP 157/76; PULSE 86; RESP 18; TEMP 36.2; O2SAT 93
[2017-11-01] MEDS: MELATONIN 3 MG TABLET PO (21:28)
[2017-11-01] MEDS: Atorvastatin Calcium 40 MG Tablet PO (21:28)
[2017-11-02] MEDS: DULoxetine Hcl 30 MG Capsule 60 MG PO (06:10)
[2017-11-02] MEDS: Menthol/Lanolin/Calamine/Znox 113 GM Tube 1 APPLIC TOPICAL ×2 (06:10→20:07)
[2017-11-02] MEDS: Enoxaparin 40 MG/0.4 ML Syringe SC (06:10)
[2017-11-02] MEDS: Clopidogrel Bisulfate 75 MG Tablet PO (06:11)
[2017-11-02] MEDS: Pantoprazole Sodium 40 MG Tablet PO ×2 (06:11→17:23)
[2017-11-02] MEDS: Senna/Docusate Sodium 1 Tablet 2 TABLET PO (06:11)
[2017-11-02] MEDS: Cefadroxil 500 MG CAPSULE PO ×2 (06:11→17:23)
[2017-11-02] MEDS: Lisinopril 20 MG Tablet 10 MG PO (06:11)
[2017-11-02] MEDS: Atenolol 50 MG Tablet PO (06:11)
[2017-11-02] MEDS: Nystatin Powder 15gm Bottle 1 APPLIC TOPICAL ×2 (06:16→20:07)
[2017-11-02] MEDS: Gabapentin 300 MG Capsule PO ×2 (07:56→17:23)
[2017-11-02] MEDS: Aspirin 81 MG TAB.CHEW PO (07:56)
[2017-11-02] MEDS: Iron Polysaccharide Complex 150 MG CAPSULE PO (07:56)
[2017-11-02 15:27] VITALS: BP 118/65; PULSE 71; RESP 18; TEMP 36.9; O2SAT 91
[2017-11-02 16:55] LABS: Bedside Glucose 91 mg/dL (70-110)
--- NOTE | 2017-11-02 17:24 | NURSING ---
THIS NURSE WALKED INTO PT ROOM AND ASKED PT HOW SHE WAS DOING. PT STATED [facility] PISSED OFF. EVERYONE TELLS ME I CANT GO HOME AND SAYS WHAT IF I FALL, WHAT IF WHAT IF. I DONT GIVE A DAM WHAT THE DOCTOR SAYS OR ANY ONE I JUST WANT TO GO HOME! THIS NURSE TRYED TO TALK TO PT BUT PT DIDNT WANT TO LISTEN. PT STATED ALL OF YOU CAN GO TO [facility]. LAKISHA GOING OUT SUNDAY AND I MAY NOT COME BACK. THIS NURSE TOLD PT TO CALL IF SHE NEEDED ANYTHING, WALKED OUT OF ROOM AND PT GOT A PHONE CALL. PT YELLING AT PERSON ON OTHER END ABOUT GOING HOME. REPORTED TO JAMARCUS LIGHT
[2017-11-02] MEDS: Acetaminophen 500 MG Tablet 1000 MG PO (20:06)
[2017-11-02] MEDS: MELATONIN 3 MG TABLET PO (20:06)
[2017-11-02] MEDS: Atorvastatin Calcium 40 MG Tablet PO (20:06)
[2017-11-03 06:02] VITALS: BP 116/70; PULSE 73; RESP 16; TEMP 36.8; O2SAT 94
[2017-11-03] MEDS: Menthol/Lanolin/Calamine/Znox 113 GM Tube 1 APPLIC TOPICAL ×2 (06:04→20:29)
[2017-11-03] MEDS: DULoxetine Hcl 30 MG Capsule 60 MG PO (06:05)
[2017-11-03] MEDS: Pantoprazole Sodium 40 MG Tablet PO ×2 (06:05→17:26)
[2017-11-03] MEDS: Atenolol 50 MG Tablet PO (06:05)
[2017-11-03] MEDS: Clopidogrel Bisulfate 75 MG Tablet PO (06:05)
[2017-11-03] MEDS: Senna/Docusate Sodium 1 Tablet 2 TABLET PO (06:05)
[2017-11-03] MEDS: Lisinopril 20 MG Tablet 10 MG PO (06:05)
[2017-11-03] MEDS: Cefadroxil 500 MG CAPSULE PO (06:05)
[2017-11-03] MEDS: Nystatin Powder 15gm Bottle 1 APPLIC TOPICAL ×2 (06:06→20:30)
[2017-11-03] MEDS: Enoxaparin 40 MG/0.4 ML Syringe SC (06:08)
[2017-11-03 08:14] LABS: Absolute Lymphocyte Count 1.87 X10^3/ul (0.83-4.51); Absolute Neutrophil Count 3.4 X10^3/uL (2.0-7.7); Basophil# 0.03 X10^3/uL; Basophil% 0.5 % (0-1); Eosinophil# 0.31 X10^3/uL; Eosinophils% 4.9 % (0-5); Hematocrit 39.6 % (37-47); Hemoglobin 12.4 g/dl (12.0-15.0); Lymphocyte # 1.87 X10^3/ul (4.0); Lymphocyte % 29.4 % (19-41); Mean Corp Hgb Conc 31.3 g/gl (32-36); Mean Corpuscular Hgb 28.9 pg (27.0-32.0); Mean Corpuscular Volume 92.3 fL (81-99); Mean Platelet Vol. 9.5 fl (6.2-12.0); Monocyte# 0.75 X10^3/uL; Monocyte% 11.8 % (0-10); Neutrophil # 3.38 X10^3/uL (2.7-7.7); Neutrophil % 53.2 % (47-70); Platelet Count 351 K/mm3 (150-450); RBC Distribution Width CV 15.2 % (11.6-14.6); RBC Distribution Width SD 51.4 fl (35.1-43.9); Red Blood Count 4.29 M/mm3 (4.2-5.4); White Blood Count 6.4 K/mm3 (4.4-11.0)
[2017-11-03 08:15] LABS: POSITIVE COUNT NO; POSITIVE DIFFERENTIAL NO; POSITIVE MORPHOLOGY NO
[2017-11-03 08:35] LABS: Anion Gap 8 (5-15); BUN 11 mg/dL (7-18); BUN/Creat Ratio 16.7 RATIO (10-20); Calcium,Total 8.9 mg/dL (8.5-10.1); Chloride 108 mmol/L (98-107); Creatinine, Serum 0.66 mg/dL (0.55-1.02); EST Glomerular Filtration Rate 95 mL/min (>60); Est Glom Filt Rate - Afr Amer 115 mL/min (>60); Estimated Creatinine Clearance 49.12 ml/min; Glucose 105 mg/dL (74-106); Potassium 3.8 mmol/L (3.5-5.1); Sodium Level 143 mmol/L (136-145)
[2017-11-03] MEDS: Gabapentin 300 MG Capsule PO ×2 (08:36→17:26)
[2017-11-03] MEDS: Aspirin 81 MG TAB.CHEW PO (08:36)
[2017-11-03] MEDS: Iron Polysaccharide Complex 150 MG CAPSULE PO (08:36)
--- NOTE | 2017-11-03 08:48 | NURSING ---
Addendum entered by Maritza Castillo 11/03/17 15:13: Dr Castro notified, new order to obtain UA & C/S Original Note: Pt complained of burning during urination, and liquid stools. Pt currently on duricef for UTI. Maritza RICKETTS aware. Will continue to monitor
[2017-11-03 09:27] VITALS: PULSE 70; RESP 18; O2SAT 94
[2017-11-03] MEDS: Tuberculin,Purif.prot.deriv. 50 TU/ML Vial 5 ML ID (09:51)
--- NOTE | 2017-11-03 14:13 | NURSING ---
Addendum entered by Maritza Castillo 11/03/17 15:14: Dr Castro updated on UA results, new order to NOEL arevalo and start Cipro Original Note: Urine collected per Dr. Langford. Urine odor very strong, urine dark jeanne color with sediment noted in collection cup. specimen sent to lab.
[2017-11-03 14:26] LABS: Mucous, Urine 0 SEEN /hpf (<or=2+); Red Blood Cells-Urine 0 SEEN /hpf (0-5); Squamous Epithelial Cells - UA 0 SEEN /hpf (5-10)
[2017-11-03 14:32] LABS: Color, Urine Yellow (Yellow); Glucose, Dipstick Normal (Normal); Ketone-Dipstick Negative (Negative); Leukocyte Esterase-Dipstick 500 /ul (Negative); Nitrite-Dipstick Positive (Negative); Occult Blood-Urine 25 /ul (Negative); Protein-Dipstick 30 mg/dl (Negative); Urine Bilirubin Dipstick Negative (Negative); Urine Clarity Sl. Cloudy (Clear); Urine Urobilinogen Normal (Normal)
[2017-11-03 14:47] LABS: Bacteria 2+ /hpf (None Seen); White Blood Cells >100 SEEN /hpf (0-5)
[2017-11-03 14:54] VITALS: BP 111/61; PULSE 70; RESP 16; TEMP 36.8; O2SAT 93
[2017-11-03] MEDS: Ciprofloxacin 250 MG Tablet PO (17:26)
[2017-11-03] MEDS: Atorvastatin Calcium 40 MG Tablet PO (20:31)
[2017-11-03] MEDS: MELATONIN 3 MG TABLET PO (20:32)
[2017-11-03] MEDS: Acetaminophen 500 MG Tablet 1000 MG PO (20:36)
[2017-11-04] MEDS: Acetaminophen 500 MG Tablet 1000 MG PO (04:45)
[2017-11-04] MEDS: DULoxetine Hcl 30 MG Capsule 60 MG PO (04:46)
[2017-11-04] MEDS: Ciprofloxacin 250 MG Tablet PO ×2 (04:46→19:52)
[2017-11-04] MEDS: Menthol/Lanolin/Calamine/Znox 113 GM Tube 1 APPLIC TOPICAL ×2 (04:46→19:50)
[2017-11-04] MEDS: Clopidogrel Bisulfate 75 MG Tablet PO (04:47)
[2017-11-04] MEDS: Atenolol 50 MG Tablet PO (04:47)
[2017-11-04] MEDS: Senna/Docusate Sodium 1 Tablet 2 TABLET PO (04:47)
[2017-11-04] MEDS: Pantoprazole Sodium 40 MG Tablet PO ×2 (04:47→19:51)
[2017-11-04] MEDS: Lisinopril 20 MG Tablet 10 MG PO (04:47)
[2017-11-04] MEDS: Nystatin Powder 15gm Bottle 1 APPLIC TOPICAL ×2 (04:49→19:50)
[2017-11-04] MEDS: Enoxaparin 40 MG/0.4 ML Syringe SC (05:02)
[2017-11-04 06:00] VITALS: PULSE 70; RESP 20; O2SAT 96
[2017-11-04] MEDS: Gabapentin 300 MG Capsule PO ×2 (07:27→19:53)
[2017-11-04] MEDS: Aspirin 81 MG TAB.CHEW PO (07:27)
[2017-11-04 16:00] VITALS: BP 106/61; PULSE 62; RESP 18; TEMP 36; O2SAT 93
--- NOTE | 2017-11-04 18:57 | NURSING ---
Pt arrived back to unit at this time.
[2017-11-04] MEDS: MELATONIN 3 MG TABLET PO (19:49)
[2017-11-04] MEDS: Atorvastatin Calcium 40 MG Tablet PO (19:50)
[2017-11-05] MEDS: Acetaminophen 500 MG Tablet 1000 MG PO (04:41)
[2017-11-05] MEDS: Pantoprazole Sodium 40 MG Tablet PO ×2 (04:42→16:45)
[2017-11-05] MEDS: Clopidogrel Bisulfate 75 MG Tablet PO (04:42)
[2017-11-05] MEDS: Ciprofloxacin 250 MG Tablet PO (04:42)
[2017-11-05] MEDS: DULoxetine Hcl 30 MG Capsule 60 MG PO (04:43)
[2017-11-05] MEDS: Lisinopril 20 MG Tablet 10 MG PO (04:43)
[2017-11-05] MEDS: Atenolol 50 MG Tablet PO (04:43)
[2017-11-05] MEDS: Menthol/Lanolin/Calamine/Znox 113 GM Tube 1 APPLIC TOPICAL ×2 (04:44→21:28)
[2017-11-05] MEDS: Nystatin Powder 15gm Bottle 1 APPLIC TOPICAL ×2 (04:46→21:27)
[2017-11-05] MEDS: Enoxaparin 40 MG/0.4 ML Syringe SC (05:01)
[2017-11-05] MEDS: Gabapentin 300 MG Capsule PO ×2 (08:04→16:45)
[2017-11-05] MEDS: Aspirin 81 MG TAB.CHEW PO (08:04)
[2017-11-05 09:14] VITALS: PULSE 71; RESP 18; O2SAT 94
--- NOTE | 2017-11-05 11:25 | NURSING ---
Dr. Castro reviewed final urine culture, N.O. received and pt updated on all.
[2017-11-05] MEDS: Phenazopyridine 95 MG Tablet 190 MG PO ×2 (11:47→21:26)
[2017-11-05] MEDS: 0.9% NaCl IVPB Med Flush (250 mL) 15 ML IV (12:07)
[2017-11-05] MEDS: 0.9% NaCl Peripheral Flush Adult/Peds IV (12:51)
[2017-11-05 15:19] VITALS: BP 122/65; PULSE 66; RESP 14; TEMP 36.8; O2SAT 94
--- NOTE | 2017-11-05 16:17 | CASEMGMT ---
Social Work SW notified pt had been requesting to return home this week. SW met with pt and pt stating that IV ATB have been started and will run for 7 days. Pt states she plans to remain in facility until IV ATB are finished with a possible d/c on Sunday 11/12. SW provided emotional support as pt is disappointed with change. SW will continue to follow for d/c planning and support. SHEKHAR Rey
[2017-11-05] MEDS: Atorvastatin Calcium 40 MG Tablet PO (21:27)
[2017-11-05] MEDS: MELATONIN 3 MG TABLET PO (21:27)
[2017-11-06] MEDS: Acetaminophen 500 MG Tablet 1000 MG PO ×3 (00:28→21:31)
[2017-11-06] MEDS: DULoxetine Hcl 30 MG Capsule 60 MG PO (05:15)
[2017-11-06] MEDS: Lisinopril 20 MG Tablet 10 MG PO (05:15)
[2017-11-06] MEDS: Pantoprazole Sodium 40 MG Tablet PO ×2 (05:16→17:46)
[2017-11-06] MEDS: Atenolol 50 MG Tablet PO (05:16)
[2017-11-06] MEDS: Clopidogrel Bisulfate 75 MG Tablet PO (05:16)
[2017-11-06] MEDS: Menthol/Lanolin/Calamine/Znox 113 GM Tube 1 APPLIC TOPICAL ×2 (05:17→21:33)
[2017-11-06] MEDS: Nystatin Powder 15gm Bottle 1 APPLIC TOPICAL ×2 (05:18→21:33)
[2017-11-06] MEDS: Enoxaparin 40 MG/0.4 ML Syringe SC (05:18)
[2017-11-06 05:20] VITALS: BP 134/58; PULSE 67
[2017-11-06] MEDS: Gabapentin 300 MG Capsule PO ×2 (08:49→17:46)
[2017-11-06] MEDS: Aspirin 81 MG TAB.CHEW PO (08:49)
[2017-11-06] MEDS: Phenazopyridine 95 MG Tablet 190 MG PO ×3 (08:53→17:46)
--- NOTE | 2017-11-06 12:44 | CASEMGMT ---
Insurance Clinical information faxed. Pending continued stay approval at this time. Auth#[id number] Anisha CORRIGAN, [employer]
[2017-11-06 15:34] VITALS: BP 136/75; PULSE 62; RESP 18; TEMP 37; O2SAT 94
[2017-11-06] MEDS: Atorvastatin Calcium 40 MG Tablet PO (21:24)
[2017-11-06] MEDS: MELATONIN 3 MG TABLET PO (21:24)
[2017-11-07] MEDS: Enoxaparin 40 MG/0.4 ML Syringe SC (05:47)
[2017-11-07] MEDS: Nystatin Powder 15gm Bottle 1 APPLIC TOPICAL ×2 (05:48→20:34)
[2017-11-07] MEDS: Menthol/Lanolin/Calamine/Znox 113 GM Tube 1 APPLIC TOPICAL ×2 (05:48→20:33)
[2017-11-07] MEDS: Clopidogrel Bisulfate 75 MG Tablet PO (05:49)
[2017-11-07] MEDS: Pantoprazole Sodium 40 MG Tablet PO ×2 (05:49→17:22)
[2017-11-07] MEDS: DULoxetine Hcl 30 MG Capsule 60 MG PO (05:49)
[2017-11-07] MEDS: Atenolol 50 MG Tablet PO (05:49)
[2017-11-07] MEDS: Lisinopril 20 MG Tablet 10 MG PO (05:49)
[2017-11-07] MEDS: Gabapentin 300 MG Capsule PO ×2 (08:06→17:22)
[2017-11-07] MEDS: Aspirin 81 MG TAB.CHEW PO (08:06)
[2017-11-07] MEDS: Phenazopyridine 95 MG Tablet 190 MG PO ×3 (08:06→17:22)
[2017-11-07] MEDS: 0.9% NaCl Peripheral Flush Adult/Peds IV (15:09)
[2017-11-07 15:31] VITALS: BP 119/64; PULSE 66; RESP 16; TEMP 36.2; O2SAT 95
[2017-11-07] MEDS: Atorvastatin Calcium 40 MG Tablet PO (20:33)
[2017-11-07] MEDS: MELATONIN 3 MG TABLET PO (20:34)
[2017-11-07 21:38] VITALS: PULSE 62; RESP 16; O2SAT 93
[2017-11-08] MEDS: 0.9% NaCl Peripheral Flush Adult/Peds IV (05:54)
[2017-11-08] MEDS: Nystatin Powder 15gm Bottle 1 APPLIC TOPICAL ×2 (06:48→21:26)
[2017-11-08] MEDS: Menthol/Lanolin/Calamine/Znox 113 GM Tube 1 APPLIC TOPICAL ×2 (06:48→21:26)
[2017-11-08] MEDS: DULoxetine Hcl 30 MG Capsule 60 MG PO (06:49)
[2017-11-08] MEDS: Lisinopril 20 MG Tablet 10 MG PO (06:49)
[2017-11-08] MEDS: Clopidogrel Bisulfate 75 MG Tablet PO (06:50)
[2017-11-08] MEDS: Senna/Docusate Sodium 1 Tablet 2 TABLET PO (06:50)
[2017-11-08] MEDS: Enoxaparin 40 MG/0.4 ML Syringe SC (06:50)
[2017-11-08] MEDS: Pantoprazole Sodium 40 MG Tablet PO ×2 (06:50→17:11)
[2017-11-08] MEDS: Atenolol 50 MG Tablet PO (06:51)
--- NOTE | 2017-11-08 08:08 | CASEMGMT ---
Insurance Continued stay approved with next update due on 11/12/17. Auth#[id number] Anisha CORRIGAN, [employer]GEANT
[2017-11-08] MEDS: Phenazopyridine 95 MG Tablet 190 MG PO ×3 (08:18→17:11)
[2017-11-08] MEDS: Gabapentin 300 MG Capsule PO ×2 (08:18→17:12)
[2017-11-08] MEDS: Aspirin 81 MG TAB.CHEW PO (08:18)
[2017-11-08 13:52] VITALS: BP 114/68; PULSE 65; RESP 16; TEMP 36.2; O2SAT 94
--- NOTE | 2017-11-08 14:02 | MDS.RN ---
Information for the mds was obtained from review of the clinical record, interview of resident, staff, and direct observation of resident's care.
--- NOTE | 2017-11-08 16:24 | CASEMGMT ---
Social Work Spoke with resident in room. Resident requesting for discharge date to be set for 11/12/17. Spoke with staff/therapy, 11/12/17 is an agreeable date at this time. Resident plans to discharge home alone at time of discharge. Resident is agreeable to home health services for physical and occupational therapy. Resident currently has a cleaning lady through [facility], [facility] does not have skilled services and another agency will need to be used. Resident reporting to have spoken to daughters about discharge date/plan. Support given. Proposed discharge date: 11/12/17 PLAN: Discharge home alone with home health services. Will continue to follow to set up home health services. Anisha CORRIGAN, WEIGHT CALLER
--- NOTE | 2017-11-08 16:28 | CASEMGMT ---
Brief interview for mental status (BIMS) and resident mood interview (PHQ-9) completed on this day. BIMS score 15. PHQ-9 score 09/01
--- NOTE | 2017-11-08 20:55 | DCINST_ITS ---
You will use the following diet at home:: No restrictions, Regular Your food should be the consistency of: Regular Your liquids should be the consistency of: Regular/Thin Discharge Activity: Return to Normal Activity, May Shower, Use Walker Weight Bearing Status: Weight bearing as tolerated Call your doctor if you observe: Fever of 101 or Higher, Inability to urinate, Inability to have a bowel movement, Shortness of breath, Chest pain, Uncontrolled pain Allergies/Adverse Reactions: Allergies alteplase Allergy (Verified 10/23/17 20:04) Unknown Medications to take at Discharge Atenolol [Tenormin (beta farheen)] 50 mg PO DAILY 08/14/15 Clopidogrel Bisulfate [Plavix] 75 mg PO DAILY 08/14/15 Lisinopril [Zestril] 10 mg PO DAILY 08/14/15 Aspirin 81 mg PO DAILY@0800 10/23/17 Atorvastatin Calcium [Lipitor] 40 mg PO QHS 10/23/17 Duloxetine HCl 60 mg PO DAILY 10/23/17 Gabapentin [Neurontin] 300 mg PO BIDCM 10/23/17 Melatonin 3 mg PO QHS 10/23/17 Nitroglycerin 0.4 mg SL PRN PRN 10/23/17 Acetaminophen [Tylenol] 1,000 mg PO Q8H PRN PRN tablet 10/24/17 Menthol/Lanolin/Calamine/Znox [Calmoseptine Ointment] 1 applic TOPICAL 0600, 0 10/26/17 Nystatin Powder [Mycostatin Powder] 1 applic TOPICAL 0600,0 10/26/17 Pantoprazole Sodium [Protonix] 40 mg PO DAILY #30 tab 11/08/17 The following prescriptions were given: Pantoprazole Sodium [Protonix] 40 mg PO DAILY #30 tab Primary Care Physician: Jackson Iniguez MD [Primary Care Provider] - Please follow up with your Primary Care Physician in: 1 week. Please Follow Up With: Dr. Carmelo Walsh When: 2 weeks. Please Follow Up With: Dr. Ham When: 2 weeks. Proposed Discharge Date: 11/12/17
--- NOTE | 2017-11-08 20:58 | HHNOTE_ITS ---
Home Health Note - Plan Overview of reason of hospitalization: The patient is a 67 year old Female with below past medical history hospitalized for right hip fracture, underwent ORIF 10/11/2017, complicated by upper GI bleed, coffee ground emesis, leading to aspiration pneumonia, acute respiratory failure, admitted to TCU for debility, here for rehabilitation, strengthening, prior to discharge home alone. 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 [] Discharge home alone, with Home Health services. 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) Stroke (Chronic) Depression (Chronic) Hyperlipidemia (Chronic) Coronary artery disease (Chronic) GERD (gastroesophageal reflux disease) (Chronic) DVT (deep venous thrombosis) (Chronic) - Requirements and Reasons Disciplines Needed/Ordered: Physical Therapy Reason for Disciplines: Disease Specific Monitoring/education, Medication Management/Knowledge Deficit, Gait Training, Fall Prevention, Home Safety/ Equipment Instruction, Balance and/or Posture Training, Transfer Training Related To: Change in Medical Treatment Plan, Limited/Poor Endurance, Physical Impairments, Unsteady Gait/Balance, Fall Risk Patient is unable to leave the home: Without Aid of Supportive Devices (crutches , cane, wheelchair, walker) - Additional Disciplines Additional Disciplines Needed/Ordered: Occupational Therapy
--- NOTE | 2017-11-08 20:58 | DS.PCM_ITS ---
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) Stroke (Chronic) Depression (Chronic) Hyperlipidemia (Chronic) Coronary artery disease (Chronic) GERD (gastroesophageal reflux disease) (Chronic) DVT (deep venous thrombosis) (Chronic) Hospital Course and Treatment Imaging Results: 10/26/17 11:17 Diet: Regular Diet Operations: None Procedures: None Summary of Care Provided: The patient is a 67 year old Female with below past medical history hospitalized for right hip fracture, underwent ORIF 10/11/2017, complicated by upper GI bleed, coffee ground emesis, leading to aspiration pneumonia, acute respiratory failure, admitted to TCU for debility, here for rehabilitation, strengthening, prior to discharge home alone. 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 [] Discharge home alone, with Home Health services. Discharge Diet: No Restrictions Discharge Activity: Return to Normal Activity, May Shower, Use Walker Weight Bearing Status: Weight bearing as tolerated Call your doctor if you observe: Fever of 101 or Higher, Inability to urinate, Inability to have a bowel movement, Shortness of breath, Chest pain, Uncontrolled pain Home Medications: Medications to take at Discharge Atenolol [Tenormin (beta farheen)] 50 mg PO DAILY 08/14/15 Clopidogrel Bisulfate [Plavix] 75 mg PO DAILY 08/14/15 Lisinopril [Zestril] 10 mg PO DAILY 08/14/15 Aspirin 81 mg PO DAILY@0800 10/23/17 Atorvastatin Calcium [Lipitor] 40 mg PO QHS 10/23/17 Duloxetine HCl 60 mg PO DAILY 10/23/17 Gabapentin [Neurontin] 300 mg PO BIDCM 10/23/17 Melatonin 3 mg PO QHS 10/23/17 Nitroglycerin 0.4 mg SL PRN PRN 10/23/17 Acetaminophen [Tylenol] 1,000 mg PO Q8H PRN PRN tablet 10/24/17 Menthol/Lanolin/Calamine/Znox [Calmoseptine Ointment] 1 applic TOPICAL 599, 219910/26/17 Nystatin Powder [Mycostatin Powder] 1 applic TOPICAL 0600,219910/26/17 Pantoprazole Sodium [Protonix] 40 mg PO DAILY #30 tab 11/08/17 Following Prescrptions Were Given to Patient: Pantoprazole Sodium [Protonix] 40 mg PO DAILY #30 tab Primary Care Physician: Jackson Iniguez MD [Primary Care Provider] - Please follow up with your Primary Care Physician in: 1 week. Please Follow Up With: Dr. Carmelo Walsh When: 2 weeks. Please Follow Up With: Dr. Ham When: 2 weeks. Disposition: Home with Home Health Minutes spent on discharge:: 35 Patient Condition:: Stable Medical Necessity - Tobacco Use Smoking Status: Former smoker Tobacco Use: Non-smoker Meaningful Use Info Meaningful Use Diagnoses (Choose all that apply): None applicable
[2017-11-08] MEDS: MELATONIN 3 MG TABLET PO (21:25)
[2017-11-08] MEDS: Atorvastatin Calcium 40 MG Tablet PO (21:25)
[2017-11-08 22:14] VITALS: O2SAT 98
[2017-11-09] MEDS: Enoxaparin 40 MG/0.4 ML Syringe SC (04:59)
[2017-11-09] MEDS: 0.9% NaCl Peripheral Flush Adult/Peds IV (05:00)
[2017-11-09] MEDS: Lisinopril 20 MG Tablet 10 MG PO (05:03)
[2017-11-09] MEDS: Pantoprazole Sodium 40 MG Tablet PO ×2 (05:03→18:23)
[2017-11-09] MEDS: Atenolol 50 MG Tablet PO (05:03)
[2017-11-09] MEDS: Clopidogrel Bisulfate 75 MG Tablet PO (05:03)
[2017-11-09] MEDS: DULoxetine Hcl 30 MG Capsule 60 MG PO (05:03)
[2017-11-09] MEDS: Nystatin Powder 15gm Bottle 1 APPLIC TOPICAL ×2 (05:06→20:37)
[2017-11-09] MEDS: Menthol/Lanolin/Calamine/Znox 113 GM Tube 1 APPLIC TOPICAL ×2 (05:06→20:36)
[2017-11-09] MEDS: Phenazopyridine 95 MG Tablet 190 MG PO ×3 (09:05→18:23)
[2017-11-09] MEDS: Aspirin 81 MG TAB.CHEW PO (09:05)
[2017-11-09] MEDS: Gabapentin 300 MG Capsule PO ×2 (09:05→18:23)
--- NOTE | 2017-11-09 13:01 | CASEMGMT ---
Addendum entered by Anisha Wolfe 11/09/17 13:10: Resident also active with [facility] in [facility] and Gisella Hernández is the case assembler. Telephone call to Gisella. Voicemail left for Gisella. This social studies teacher requesting for services to be increased as resident is needing more assistance. Also communicated to Gisella resident discharge date. Original Note: Social Work Collaborating with resident. Resident requesting for home health services to be set up through [facility]. Resident also reporting to have a cleaning lady through [facility] care and is requesting for this social studies teacher to contact [facility] to inform [facility] of resident discharge. Resident reporting to have all needed durable medical equipment already set up within the home. Resident daughter also aware of discharge and discharge plan per a phone conversation this social studies teacher had with resident. Support given. Telephone call to Camron, this social studies teacher informed [facility] of resident discharge. Telephone call to iona LANDEROS. This social studies teacher making referral for physical and occupational therapy. Order faxed along with clinical information. Proposed discharge date: 11/12/17 PLAN: Discharge home alone with home health services. Anisha CORRIGAN, UTILITY WORKER PRODUCTION
[2017-11-09 14:09] VITALS: BP 132/64; PULSE 63; RESP 16; TEMP 37.1; O2SAT 95
--- NOTE | 2017-11-09 16:44 | CASEMGMT ---
Social Work Spoke with resident in room. Resident is now requesting for discharge date to be set for 11/11/17. Spoke with staff/therapy, 11/11/17 is an agreeable date at this time. Resident plans to discharge home alone with family. All community resources updated on resident discharge date. Telephone call from [employer], resident has been approved further aide services. Proposed discharge date: 11/11/17 PLAN: Discharge home alone with home health services. Anisha CORRIGAN, SALES PROMOTION MANAGER
[2017-11-09] MEDS: Acetaminophen 500 MG Tablet 1000 MG PO (18:23)
[2017-11-09] MEDS: MELATONIN 3 MG TABLET PO (20:38)
[2017-11-09] MEDS: Atorvastatin Calcium 40 MG Tablet PO (20:38)
[2017-11-10] MEDS: Enoxaparin 40 MG/0.4 ML Syringe SC (05:17)
[2017-11-10] MEDS: Clopidogrel Bisulfate 75 MG Tablet PO (05:17)
[2017-11-10] MEDS: DULoxetine Hcl 30 MG Capsule 60 MG PO (05:17)
[2017-11-10] MEDS: Pantoprazole Sodium 40 MG Tablet PO (05:17)
[2017-11-10] MEDS: Atenolol 50 MG Tablet PO (05:17)
[2017-11-10] MEDS: Lisinopril 20 MG Tablet 10 MG PO (05:17)
[2017-11-10] MEDS: Menthol/Lanolin/Calamine/Znox 113 GM Tube 1 APPLIC TOPICAL (05:21)
[2017-11-10] MEDS: Nystatin Powder 15gm Bottle 1 APPLIC TOPICAL (05:21)
[2017-11-10] MEDS: Gabapentin 300 MG Capsule PO (08:39)
[2017-11-10] MEDS: Aspirin 81 MG TAB.CHEW PO (08:39)
[2017-11-10 08:50] LABS: Absolute Lymphocyte Count 1.78 X10^3/ul (0.83-4.51); Basophil# 0.04 X10^3/uL; Basophil% 0.6 % (0-1); Eosinophils% 4.2 % (0-5); Hematocrit 36.2 % (37-47); Hemoglobin 11.4 g/dl (12.0-15.0); Lymphocyte # 1.78 X10^3/ul (4.0); Lymphocyte % 25.1 % (19-41); Mean Corp Hgb Conc 31.5 g/gl (32-36); Mean Corpuscular Hgb 29.1 pg (27.0-32.0); Mean Corpuscular Volume 92.3 fL (81-99); Mean Platelet Vol. 10.3 fl (6.2-12.0); Monocyte# 0.93 X10^3/uL; Monocyte% 13.1 % (0-10); Neutrophil # 4.02 X10^3/uL (2.7-7.7); Neutrophil % 56.9 % (47-70); POSITIVE COUNT NO; POSITIVE DIFFERENTIAL NO; POSITIVE MORPHOLOGY NO; Platelet Count 318 K/mm3 (150-450); RBC Distribution Width CV 14.3 % (11.6-14.6); RBC Distribution Width SD 46.9 fl (35.1-43.9); Red Blood Count 3.92 M/mm3 (4.2-5.4); White Blood Count 7.1 K/mm3 (4.4-11.0)
[2017-11-10 09:10] LABS: Anion Gap 8 (5-15); BUN 14 mg/dL (7-18); BUN/Creat Ratio 19.7 RATIO (10-20); Calcium,Total 8.5 mg/dL (8.5-10.1); Chloride 109 mmol/L (98-107); Creatinine, Serum 0.71 mg/dL (0.55-1.02); EST Glomerular Filtration Rate 87 mL/min (>60); Est Glom Filt Rate - Afr Amer 105 mL/min (>60); Estimated Creatinine Clearance 49.12 ml/min; Glucose 113 mg/dL (74-106); Potassium 3.7 mmol/L (3.5-5.1); Sodium Level 144 mmol/L (136-145)
--- NOTE | 2017-11-10 09:32 | NURSING ---
Pt is requesting to leave today after IV Maxipime is complete. Dr Castro aware and agreeable.
[2017-11-10 10:00] VITALS: PULSE 71; RESP 18; O2SAT 92
[2017-11-10] MEDS: Acetaminophen 500 MG Tablet 1000 MG PO (10:48)
--- NOTE | 2017-11-10 10:55 | NURSING ---
RASH TO PT BACK. ASKED PT IF RASH BOTHERED HER PT STATED NO,I DID NOT KNOW I HAD A RASH. REPORTED TO JAMARCUS LIGHT
[2017-11-10 11:35] VITALS: BP 136/78; RESP 18; TEMP 36.8; O2SAT 92
--- NOTE | 2017-11-12 16:14 | CASEMGMT ---
Insurance Notified insurance of resident discharge on 11/10/17 to home alone with home health services. Auth#[id number] Anisha CORRIGAN, TIMBER MANAGEMENT SPECIALIST
== END 2017-11-10 11:50 | disposition home health service (06) | DRG 560 ==
PROVIDERS: Admitting Provider Family Medicine Geriatric Medicine; Family Provider Family Medicine; PCP Family Medicine; Visit Provider Family Medicine Geriatric Medicine
DX: S72.141D Displaced intertrochanteric fracture of right femur, subsequent encounter for closed fracture with routine healing (principal); K22.10 Ulcer of esophagus without bleeding; D50.9 Iron deficiency anemia, unspecified; I25.10 Atherosclerotic heart disease of native coronary artery without angina pectoris; B35.4 Tinea corporis; B96.5 Pseudomonas (aeruginosa) (mallei) (pseudomallei) as the cause of diseases classified elsewhere; N39.0 Urinary tract infection, site not specified; E78.5 Hyperlipidemia, unspecified; K21.9 Gastro-esophageal reflux disease without esophagitis; W19.XXXD Unspecified fall, subsequent encounter; I10 Essential (primary) hypertension; I77.89 Other specified disorders of arteries and arterioles; F41.9 Anxiety disorder, unspecified; F32.9 Major depressive disorder, single episode, unspecified; Z86.718 Personal history of other venous thrombosis and embolism; Z86.73 Personal history of transient ischemic attack (TIA), and cerebral infarction without residual deficits; Z79.82 Long term (current) use of aspirin; Z79.899 Other long term (current) drug therapy; Z79.02 Long term (current) use of antithrombotics/antiplatelets; Z87.891 Personal history of nicotine dependence; Z16.39 Resistance to other specified antimicrobial drug; I25.2 Old myocardial infarction; Z87.01 Personal history of pneumonia (recurrent)
CPT/HCPCS: 36415; 80048; 81001; 82962; 85025; 87077; 87086; 87088; 87184; 87186; 97110; 97116; 97162; 97166; 97530; 97535; 97802; J7050; A4216